=== PATIENT | female | born 1975 | race African-American/Black ===

== ENCOUNTER 2017-11-26 20:17 | Observation (INO) | payer MEDICAID, OTHER ==
[2017-11-26 20:54] LABS: Bilirubin Negative (Negative); Blood, Urine Negative (Negative); Clarity CLEAR (Clear); Glucose, Urine (Dipstick) Negative (Negative); Leukocyte Negative (Negative); Nitrite Negative (Negative); Protein, Urine (Dipstick) Negative (Neg-Trace); Specific Gravity, Urine 1.025 (1.002-1.036); Urobilinogen 0.2 mg/dL (0.2-1.0)
[2017-11-26 20:57] LABS: #Basophils 0.1 thou/uL (0.0-0.2); #Eosinphils 0.2 thou/uL (0.0-0.7); #Lymphocytes 4.3 thou/uL (1.20-3.40); #Monocytes 0.6 thou/uL (0.11-0.59); #Neutrophils 4.6 thou/uL (1.40-6.50); %Basophils 1.3 % (0.0-1.0); %Lymphocytes 43.2 % (21.0-51.0); %Monocytes 6.5 % (0.0-10.0); Hemoglobin 11.4 g/dL (12.0-16.0); Mean Corpuscular HGB CONC 32.6 g/dL (32.0-36.0); Mean Corpuscular Hemoglobin 25.2 pg (27.0-31.0); Mean Corpuscular Volume 77.3 fl (81.0-99.0); Mean Platelet Volume 7.2 fL (7.4-10.4); Platelet Count 300 thou/uL (130-400); RBC Distribution Width 14.9 % (11.5-14.5); Red Blood Cell (RBC) Count 4.51 mill/uL (4.20-5.40); White Blood Cell (WBC) Count 9.8 thou/uL (4.8-10.8)
[2017-11-26 21:17] LABS: ALT (SGPT) 20 U/L (8-55); AST (SGOT) 16 U/L (5-34); Albumin 4.1 g/dL (3.5-5.0); Alkaline Phosphatase 106 U/L (40-150); Anion Gap 12 mmol/L (10-20); BUN (Urea Nitrogen) 19 mg/dL (7.0-18.7); Bilirubin, Total Less than 0.2 mg/dL (0.2-1.2); Calc. Creatinine Clearance 0 mL/min (70-130); Calcium 9.4 mg/dL (7.8-10.44); Carbon Dioxide 26 mmol/L (22-29); Chloride 107 mmol/L (98-107); Estimated GFR-MDRD 84; Globulin 3.3 g/dL (2.4-3.5); Glucose 88 mg/dL (70-105); Lipase 38 U/L (8-78); Potassium 3.8 mmol/L (3.5-5.1); Protein, Total 7.4 g/dL (6.0-8.3); Sodium 141 mmol/L (136-145)
[2017-11-26] MEDS ORDERED: Pantoprazole 40 MG VIAL ONE (21:34)
[2017-11-26 21:52] LABS: CKMB 0.8 ng/mL (0-6.6); Troponin I Less than 0.010 ng/mL (< 0.028)
[2017-11-26] MEDS ORDERED: Lidocaine Viscous Sol 2% 15 ml UD Cup ONE (22:38)
[2017-11-26] MEDS ORDERED: Mag-Al 1200 mg/1200 mg/30 ML UDCUP ONE (22:38)
[2017-11-26] MEDS ORDERED: Ondansetron HCl/PF 4 MG/2 ML Vial ONE (23:35)
[2017-11-27] MEDS ORDERED: Sodium Chloride 0.9% 1,000 ML IV SCH ×2 (02:15→08:17)
[2017-11-27] MEDS ORDERED: Morphine 5 MG/ML SYRINGE SLOW IVP PRN ×2 (02:16→15:52)
[2017-11-27] MEDS ORDERED: Ondansetron HCl/PF 4 MG/2 ML Vial IVP PRN ×2 (02:18→08:17)
[2017-11-27] MEDS ORDERED: Ondansetron ODT 4 MG TAB SL PRN (02:18)
[2017-11-27] MEDS ORDERED: Acetaminophen 325 MG TAB PO PRN (02:18)
[2017-11-27 02:31] VITALS: BMI 35.9
[2017-11-27 05:27] LABS: Troponin I Less than 0.010 ng/mL (< 0.028)
--- NOTE | 2017-11-27 06:58 | CT ---
CT ABDOMEN AND PELVIS NONCONTRAST: Date: 11/26/17 HISTORY: Flank pain. COMPARISON: 04/10/17. FINDINGS: Each renal collecting system, ureter, and the urinary bladder are decompressed without stone apparent . Lack of contrast limits evaluation for other abnormalities. There are postoperative changes of the ri ght colon. No evidence of obstruction. Phleboliths are apparent within the pelvis. There are degenera tive changes of the lumbar spine. Gallbladder is surgically absent. Nonspecific lymph nodes are scatt ered about the retroperitoneum. Scattered diverticula arise from the colon. Minimal free fluid within the pelvis. IMPRESSION: No CT evidence of urinary tract obstruction or calcification. POS: [facility]
[2017-11-27] MEDS ORDERED: Pantoprazole 80 MG, Admixture Fee 1 EACH in Sodium Chloride 0.9% 100 ML IVP SCH (08:17)
[2017-11-27] MEDS ORDERED: Ondansetron ODT 4 MG TAB PO PRN (08:17)
[2017-11-27] MEDS ORDERED: ZOLPIDEM TARTRATE 5 MG PO PRN (08:17)
[2017-11-27] MEDS ORDERED: PROVENTIL INHALER 6.7 G (200 INHALATIONS) INH PRN (08:17)
[2017-11-27] MEDS ORDERED: Polyethylene Glycol 3350 17 GM Packet PO PRN (08:17)
[2017-11-27] MEDS ORDERED: Zolpidem Tartrate 5 MG TAB PO PRN (08:33)
[2017-11-27] MEDS ORDERED: Non-Formulary Item 1 EACH (Budesonide-Formoterol [Symbicort 80-4.5] 2 PUFF) INH SCH (09:00)
[2017-11-27] MEDS ORDERED: Pantoprazole 40 MG VIAL IVP SCH (09:00)
[2017-11-27 09:03] LABS: #Basophils 0.1 thou/uL (0.0-0.2); #Eosinphils 0.1 thou/uL (0.0-0.7); #Lymphocytes 3.7 thou/uL (1.20-3.40); #Monocytes 0.6 thou/uL (0.11-0.59); #Neutrophils 3.8 thou/uL (1.40-6.50); %Basophils 1.3 % (0.0-1.0); %Eosinophils 1.6 % (0.0-10.0); %Lymphocytes 44.7 % (21.0-51.0); %Monocytes 6.7 % (0.0-10.0); %Neutrophils 45.7 % (42.0-75.0); Hemoglobin 9.9 g/dL (12.0-16.0); Mean Corpuscular HGB CONC 31.5 g/dL (32.0-36.0); Mean Corpuscular Hemoglobin 25.1 pg (27.0-31.0); Mean Corpuscular Volume 79.7 fl (81.0-99.0); Mean Platelet Volume 7.4 fL (7.4-10.4); Platelet Count 261 thou/uL (130-400); RBC Distribution Width 14.9 % (11.5-14.5); Red Blood Cell (RBC) Count 3.95 mill/uL (4.20-5.40); White Blood Cell (WBC) Count 8.3 thou/uL (4.8-10.8)
[2017-11-27 09:19] LABS: ALT (SGPT) 27 U/L (8-55); AST (SGOT) 27 U/L (5-34); Albumin 3.5 g/dL (3.5-5.0); Alkaline Phosphatase 93 U/L (40-150); Anion Gap 9 mmol/L (10-20); BUN (Urea Nitrogen) 15 mg/dL (7.0-18.7); Bilirubin, Total 0.3 mg/dL (0.2-1.2); Calc. Creatinine Clearance 137 mL/min (70-130); Calcium 8.5 mg/dL (7.8-10.44); Carbon Dioxide 27 mmol/L (22-29); Chloride 109 mmol/L (98-107); Estimated GFR-MDRD Greater than 90; Globulin 2.8 g/dL (2.4-3.5); Glucose 100 mg/dL (70-105); Magnesium 1.8 mg/dL (1.6-2.6); Potassium 3.7 mmol/L (3.5-5.1); Protein, Total 6.3 g/dL (6.0-8.3); Sodium 141 mmol/L (136-145)
[2017-11-27] MEDS: Sodium Chloride 0.9% 1,000 ML IV SCH ×2 (15:05→21:34)
--- NOTE | 2017-11-27 15:08 | HP ---
DATE OF ADMISSION: 11/27/2017 TIME OF SERVICE: 1100 CHIEF COMPLAINT: Abdominal pain and melena. HISTORY OF PRESENT ILLNESS: Ms. Brewer is a 42-year-old female with history of hiata l hernia, COPD/asthma, constipation, GERD, anxiety/depression and a prior episode of abdominal pain, who presents to the emergency department. She has had an ongoing 2-week history of epigastric pain t hat was worse over the last day or two. She does have a history of a hiatal hernia, some 2 years ago in [place] that they offered surgical repair for which she at that time declined. She has had increased abdominal pain and felt like she was getting bloated, had some nausea and vomit ing when she ate. She did have off and on black stools over the last 2 weeks, and in the emergency d epartment, workup showed a white blood cell count normal, hemoglobin 11.4, which is at her baseline. Chemistries are normal. She was given a 1 liter normal saline and GI cocktail. She was given some Zofran and morphine, and did have one episode of chest pain that came and went spontaneously. Grant shafer subsequently called for admit. She was accepted by the beam builder early this morning and is being admitted now. Since that time, repeat labs have been drawn that showed her hemoglobin dropping from 11.4-9.9. She has had no further melanotic episodes. She had seen Dr. Jarvis in the past for her GERD. PAST MEDICAL HISTORY: 1. Hiatal hernia. 2. Asthma. 3. Constipation. 4. GERD. 5. Anxiety. 6. Depression. PAST SURGICAL HISTORY: 1. Cholecystectomy. 2. Appendectomy. 3. Hysterectomy with bilateral ovary removal. 4. Umbilical hernia repair at age 11. 5. Right wrist tumor removal, she thinks melanoma. HOME MEDICATIONS: 1. Sennosides 5 mg p.o. daily. 2. Docusate as needed. 3. Symbicort 80/4.5 two puffs b.i.d. 4. Albuterol HFA 2 puffs q.4 hours as needed for shortness of breath. 5. Phenergan 25 mg p.o. t.i.d. as needed. 6. Zofran ODT 4 mg p.o. p.r.n. nausea and vomiting. 7. Ambien 5 mg p.o. at bedtime. 8. Protonix 40 mg daily. 9. MiraLax 17 grams daily as listed, she says she was told to take it twice a day, but she does not. ALLERGIES: 1. IODINE, causes anaphylaxis. 2. NITROFURANTOIN, causes hives. 3. TORADOL, causes hives. 4. TRAMADOL, causes hives. 5. HYDROCODONE, causes nausea and vomiting. FAMILY HISTORY: Significant for hyperlipidemia, her dad at age 75 with LA AND had a history of stomach and brain cancers. Family history is also significant for diabetes and hypertension. SOCIAL HISTORY: Significant social alcohol, but otherwise negative for habits x3. REVIEW OF SYSTEMS: A 10-point review of systems was performed, negative for all systems except as pe r HPI. PHYSICAL EXAMINATION: VITAL SIGNS: Temperature 97.6, pulse 52, blood pressure 139/70, respiratory 18, saturation 99% room air. GENERAL: She is awake. She is alert. She is oriented x3, well-developed, well-nourished Am er[place] female, appears to be in zero distress. HEENT: Normocephalic and atraumatic. Pupils equal, round, reactive to light bilaterally. Oral muco sa moist. There is no visible lesion. No thrush. NECK: Supple without lymphadenopathy, JVD, or thyromegaly. She has normal carotid upstrokes. There are no bruits. LUNGS: Clear. CARDIOVASCULAR: Heart sounds are regular. She has no audible murmurs. ABDOMEN: Soft, nontender, nondistended, no mass or organomegaly. She has no rebound, rigidity or gu arding. EXTREMITIES: No cyanosis, no clubbing, no edema. SKIN: Warm, moist, and well perfused. She has no rashes or lesions. NEUROLOGIC: Cranial nerves II-XII grossly intact. She has no focal deficits, 5/5 strength, and norm al speech. MUSCULOSKELETAL: Normal to inspection. Large joints are uninflamed. There is no palpable effusion. LABORATORY DATA: Sodium 141, potassium 3.8, chloride 107, bicarb 26, BUN 19, creatinine 0.88, and ca lcium 9.4. Glucose was 88. Liver functions within normal limits. Total bilirubin is less than 0.2. CBC shows white count 9.8, hemoglobin 11.4, hematocrit 34.9, platelet count is 300,000. Repeat lab s showed her hemoglobin dropped from 11.4-9.9. White blood cell counts remain stable. Repeat chemis tries as her CMP completely within normal limits. Troponin I was negative x3, lipase was 38. Urinalysis negative. CT scan of the abdomen and pelvis showed a hiatal hernia. No acute intra-abdominal pathology noted. ASSESSMENT AND PLAN: 1. Probable upper gastrointestinal bleed. Suspect gastritis or ulcer. Placed on a Protonix drip. Get serial H&Hs, she was already typed and crossed by the emergency department, but does not need a t ransfusion at this point. I have consulted GI, kept the patient on a clear liquid diet and hopefully will be undergo endoscopy later today. 2. Hiatal hernia: None at present. 3. History of asthma on Symbicort and albuterol HFA, we will continue. 4. Chronic constipation. We will continue MiraLax b.i.d. 5. Gastroesophageal reflux disease, on Protonix drips as above. 6. Anxiety/depression. Continue home medications.
--- NOTE | 2017-11-27 15:20 | RAD ---
UPPER GI AIR CONTRAST: HISTORY: Abdominal pain. FINDINGS: Air contrast and single column barium evaluation shows a very small sliding hiatal hernia with a mode rate amount of gastroesophageal reflux. The esophagus, stomach, and duodenum otherwise have a normal appearance. Metallic clips overlie the gallbladder fossa. Fluoro time 1.2 minutes. IMPRESSION: Very small hiatal hernia. A moderate amount of gastroesophageal reflux. POS: [facility]
[2017-11-27 17:01] LABS: Hemoglobin 9.9 g/dL (12.0-16.0)
--- NOTE | 2017-11-27 18:00 | CON ---
DATE OF CONSULTATION: 11/27/2017 REASON FOR CONSULTATION: Epigastric pain, reported dark stool. HISTORY OF PRESENT ILLNESS: Ms. Brewer is a 42-year-old female, well known to me who presented to the emergency room with epigastric pain, worsening over 2 months. She states that it is burning, sharp, tight, often will be worse after she eats. She also notes that she has some vomiting sometimes when she eats. She denied any hematemesis. She reports that sometimes her stools are black. She was on iron, but this was stopped sometime back. She does not recall when. She continues to take Protonix , she states for reflux. She is not sure if she takes 1 or 2. She denies any fever, chills, or dysp hagia. She feels that food sits in her stomach at times. Here in the hospital, she has had no melen a. She was on morphine, but this has been now stopped. She is tolerating a liquid diet, which has b een on since admission. REVIEW OF SYSTEMS: Negative for fever, chills, rashes, myalgias, arthralgias. Occasionally, she alan l have some bright red blood per rectum. PAST MEDICAL HISTORY: Sickle cell trait, reported border hypertension and border diabetes, von Ricardo brand. She reports she was told in [place] one time that she had leukemia, although she is not seein g this physician anymore, only had to go for a few visits. She has had a history of a hiatal hernia sliding type. PAST SURGICAL HISTORY: Appendectomy, cholecystectomy. She has had upper and lower endoscopies for m icrocytic anemia and iron deficiency in 04/2016 and 11/2013. On these studies, she has never had any polyps or overt masses or ulcers. She does have a small hiatal hernia. HOME MEDICATIONS: Dulera inhaler, Atrovent inhaler, Senokot, MiraLax, stool softener, Symbicort, alb uterol, Phenergan, Zofran, Protonix. MEDICATIONS HERE: Albuterol, Dulera, Zofran, Protonix drip, MiraLax p.r.n., normal saline at 125 an hour. FAMILY HISTORY: Negative for colorectal cancer and liver disease. SOCIAL HISTORY: Negative for alcohol, drugs or tobacco. PHYSICAL EXAMINATION: VITAL SIGNS: Temperature is 97, pulse 82, blood pressure 139/71. GENERAL: The patient is resting comfortably in bed. She is dressed. She is eating a liquid diet. She is in no distress. LUNGS: Clear. HEART: Regular rate and rhythm. ABDOMEN: Soft. Mildly tender in the epigastrium with voluntary guarding, but no rebound. Abdomen i s protuberant. No shifting dullness or fluid wave. EXTREMITIES: No clubbing, cyanosis or edema. LABORATORY STUDIES: White count is 8.3; hemoglobin is 9.9, it was 11.4 yesterday, which is at her ba seline; MCV of 79, which is chronic; platelet count is 271,000. Sodium 141, potassium 3.7, BUN and c reatinine are 15 and 0.8, bicarbonate is 27 and chloride was 109. Liver function tests normal. Lipa se normal. TSH normal. Iron was 30 in 06/2017. Urine drug screen negative. Hepatitis A, B, C nega tive. IMAGING STUDIES: CAT scan of the abdomen and pelvis with no contrast showed no kidney stones. I hav e reviewed those films and there is nothing more that can be said about the CAT scan of the abdomen a nd pelvis without any contrast. It is of no use in evaluating abdominal pain other than that which f elt to be possibly related to gallstones. She has also had 4 CAT scans of the abdomen and pelvis sin ce 09/2016, some with contrast, others without, none of these have shown anything abnormal. She had an upper GI and small bowel follow through in 06/2016, which was normal. Separate showed delayed gas tric emptying and small bowel transit. ASSESSMENT: 1. Chronic abdominal pain with multiple evaluations in the past. She does have a history of hiatal hernia, but has had multiple CAT scans, surgeries and endoscopies with no other findings. This is li dmitry functional dyspepsia. There may be a role related to reflux. Possibility of some delayed gastr ic emptying found to be considered as well. Her CAT scan shows no overt constipation or obstipation at this time. 2. Microcytic anemia. She has had documented low iron in the past, she has had multiple endoscopies that have been nondiagnostic in the past and she has had evaluation and had been told she has von Wi llebrand factor and also a thalassemia trait. 3. The patient reports she was told she had leukemia at [facility] in [place] in the past, b ut only saw the doctors there for a few months while she was in town. She did not receive chemothera py. I suspect this is not a true diagnosis. Nothing on rectal exam. There is no melena. RECOMMENDATIONS: 1. Check hemoglobin A1c. 2. Stop Protonix drip, it is not necessary. 3. Check an H&H later today. 4. Hep-Lock IV. 5. Upper gastrointestinal. If this is normal and the patient's hemoglobin is stable, she can go belkis e with Bentyl and PPI b.i.d. 6. She has ongoing problems and the upper GI is normal, a gastric emptying scan would be reasonable. We will follow from a distance.
[2017-11-27] MEDS: Mometasone/Formoterol 120 PUFF INHALER INH SCH (18:15)
[2017-11-27] MEDS: Dicyclomine 10 MG CAP PO PRN (18:33)
[2017-11-27] MEDS: Pantoprazole 40 MG VIAL IVP SCH (20:00)
[2017-11-28] MEDS ORDERED: Acetaminophen 500 MG TAB PO PRN (03:02)
[2017-11-28] MEDS: Dicyclomine 10 MG CAP PO PRN ×2 (03:10→09:03)
[2017-11-28 05:04] LABS: Anion Gap 9 mmol/L (10-20); BUN (Urea Nitrogen) 8 mg/dL (7.0-18.7); Calc. Creatinine Clearance 137 mL/min (70-130); Calcium 8.7 mg/dL (7.8-10.44); Carbon Dioxide 27 mmol/L (22-29); Chloride 109 mmol/L (98-107); Estimated GFR-MDRD Greater than 90; Glucose 99 mg/dL (70-105); Magnesium 1.9 mg/dL (1.6-2.6); Potassium 3.8 mmol/L (3.5-5.1); Sodium 141 mmol/L (136-145)
[2017-11-28] MEDS: Mometasone/Formoterol 120 PUFF INHALER INH SCH (07:24)
[2017-11-28 07:59] VITALS: BP 116/71; TEMP 98.5
[2017-11-28] MEDS: Pantoprazole 40 MG VIAL IVP SCH (09:03)
[2017-11-28 09:54] LABS: #Basophils 0.1 thou/uL (0.0-0.2); #Eosinphils 0.2 thou/uL (0.0-0.7); #Lymphocytes 3.1 thou/uL (1.20-3.40); #Monocytes 0.4 thou/uL (0.11-0.59); #Neutrophils 2.6 thou/uL (1.40-6.50); %Basophils 0.9 % (0.0-1.0); %Eosinophils 2.5 % (0.0-10.0); %Lymphocytes 48.8 % (21.0-51.0); %Monocytes 5.9 % (0.0-10.0); %Neutrophils 41.9 % (42.0-75.0); Hemoglobin 10.5 g/dL (12.0-16.0); Mean Corpuscular HGB CONC 32.1 g/dL (32.0-36.0); Mean Corpuscular Hemoglobin 25.1 pg (27.0-31.0); Mean Corpuscular Volume 78.2 fl (81.0-99.0); Mean Platelet Volume 7.2 fL (7.4-10.4); Platelet Count 245 thou/uL (130-400); RBC Distribution Width 14.9 % (11.5-14.5); Red Blood Cell (RBC) Count 4.19 mill/uL (4.20-5.40); White Blood Cell (WBC) Count 6.3 thou/uL (4.8-10.8)
[2017-11-28 10:14] LABS: Anion Gap 12 mmol/L (10-20); BUN (Urea Nitrogen) 8 mg/dL (7.0-18.7); Calc. Creatinine Clearance 129 mL/min (70-130); Calcium 9.1 mg/dL (7.8-10.44); Carbon Dioxide 25 mmol/L (22-29); Chloride 107 mmol/L (98-107); Estimated GFR-MDRD 88; Glucose 113 mg/dL (70-105); Magnesium 1.9 mg/dL (1.6-2.6); Potassium 3.9 mmol/L (3.5-5.1); Sodium 140 mmol/L (136-145)
--- NOTE | 2017-11-28 15:41 | EKG ---
Test Reason : Blood Pressure : / mmHG Vent. Rate : 063 BPM Atrial Rate : 063 BPM P-R Int : 124 ms QRS Dur : 086 ms QT Int : 412 ms P-R-T Axes : 072 053 039 degrees QTc Int : 421 ms Normal sinus rhythm Minimal voltage criteria for LVH, may be normal variant Borderline ECG Confirmed by OFELIA RZEA, JESSE ([id number]), proposal editor ELVA JOINER ([id number]) on 11/28/2017 3:41:00 PM Referred By: Confirmed By:JESSE GILBERT MD
--- NOTE | 2017-11-28 15:41 | EKG ---
Test Reason : Blood Pressure : / mmHG Vent. Rate : 086 BPM Atrial Rate : 086 BPM P-R Int : 138 ms QRS Dur : 084 ms QT Int : 380 ms P-R-T Axes : 055 053 017 degrees QTc Int : 454 ms Normal sinus rhythm Normal ECG #2 No changes Confirmed by JESSE GILBERT MD ([id number]), content editor ELVA JOINER ([id number]) on 11/28/2017 3:41:26 PM Referred By: Confirmed By:JESSE GILBERT MD
== END 2017-11-28 11:51 | disposition home or self-care (01) ==
LOC: ERS 20:17 → 2SW 11-27 01:51
PROVIDERS: ADMIT Family Medicine; ATTEND Family Medicine
DX: R10.13 Epigastric pain (principal); K21.9 Gastro-esophageal reflux disease without esophagitis; D57.3 Sickle-cell trait; D68.0 Von Willebrand disease; D64.9 Anemia, unspecified; C95.90 Leukemia, unspecified not having achieved remission; K44.9 Diaphragmatic hernia without obstruction or gangrene; R03.0 Elevated blood-pressure reading, without diagnosis of hypertension; R73.03 Prediabetes; Z79.899 Other long term (current) drug therapy; Z98.890 Other specified postprocedural states
CPT/HCPCS: 36415; 74176; 74247; 80048; 80053; 81003; 82274; 82553; 83690; 83735; 84484; 85025; 93005; 96361; 96365; 96366; 96374; 96375; 96376; J2270; A4216; C9113; G0378; J2405; J7050

== ENCOUNTER 2017-11-29 16:06 | Emergency (ER) | payer OTHER ==
[2017-11-29] MEDS ORDERED: Lidocaine Viscous Sol 2% 15 ml UD Cup ONE (16:43)
[2017-11-29] MEDS ORDERED: Mag-Al 1200 mg/1200 mg/30 ML UDCUP ONE (16:43)
--- NOTE | 2017-12-05 19:03 | EKG ---
Test Reason : Blood Pressure : / mmHG Vent. Rate : 063 BPM Atrial Rate : 063 BPM P-R Int : 142 ms QRS Dur : 086 ms QT Int : 410 ms P-R-T Axes : 054 054 051 degrees QTc Int : 419 ms Normal sinus rhythm Normal ECG Confirmed by ERICKA REZA, KARTHIKEYAN ([id number]), design editor LESLEY ALONZO ([id number]) on 12/05/2017 7:02:17 PM Referred By: Confirmed By:KARTHIKEYAN BARNETT MD
== END 2017-11-29 18:23 | disposition home or self-care (01) ==
LOC: ERS 16:06
DX: K29.70 Gastritis, unspecified, without bleeding (principal); D57.00 Hb-SS disease with crisis, unspecified; D50.0 Iron deficiency anemia secondary to blood loss (chronic); D68.0 Von Willebrand disease; I10 Essential (primary) hypertension; G47.00 Insomnia, unspecified; Z87.01 Personal history of pneumonia (recurrent); Z79.899 Other long term (current) drug therapy
CPT/HCPCS: 93005

== ENCOUNTER 2017-12-07 12:34 | Emergency (ER) | payer OTHER ==
[2017-12-07 13:08] LABS: Hemoglobin 12.5 g/dL (12.0-16.0); Mean Corpuscular HGB CONC 32.6 g/dL (32.0-36.0); Mean Corpuscular Hemoglobin 25.3 pg (27.0-31.0); Mean Corpuscular Volume 77.6 fl (81.0-99.0); Mean Platelet Volume 7.4 fL (7.4-10.4); Platelet Count 331 thou/uL (130-400); RBC Distribution Width 14.9 % (11.5-14.5); Red Blood Cell (RBC) Count 4.95 mill/uL (4.20-5.40); White Blood Cell (WBC) Count 5.9 thou/uL (4.8-10.8)
[2017-12-07 13:20] LABS: ALT (SGPT) 19 U/L (8-55); AST (SGOT) 20 U/L (5-34); Albumin 4.4 g/dL (3.5-5.0); Alkaline Phosphatase 107 U/L (40-150); Anion Gap 13 mmol/L (10-20); BUN (Urea Nitrogen) 16 mg/dL (7.0-18.7); Bilirubin, Total 0.2 mg/dL (0.2-1.2); Calc. Creatinine Clearance 0 mL/min (70-130); Calcium 10.2 mg/dL (7.8-10.44); Carbon Dioxide 26 mmol/L (22-29); Chloride 103 mmol/L (98-107); Estimated GFR-MDRD 86; Globulin 3.8 g/dL (2.4-3.5); Glucose 102 mg/dL (70-105); Potassium 4.1 mmol/L (3.5-5.1); Protein, Total 8.2 g/dL (6.0-8.3); Sodium 138 mmol/L (136-145)
[2017-12-07 13:41] LABS: Eosinophils 1 % (0-10); Hypochromia SLIGHT = 6-15 cells (100X) (0-5/hpf); Lymphocytes 52 % (21-51); MDiff Complete? YES; Microcytosis SLIGHT = 6-15 cells (100X) (0-5/hpf); Monocytes 3 % (0-10); Neutrophil 36 % (42-75); Ovalocytes SLIGHT = 2-5 cells (100X) (0-1/hpf); PLT Morphology Comment Appears Adequate; Polychromasia SLIGHT = 2-3 cells (100X) (0-2/hpf); Reactive Lymphocytes 8 % (0-10); Target Cells SLIGHT = 2-5 cells (100X) (0-1/hpf)
[2017-12-07] MEDS ORDERED: Lidocaine Viscous Sol 2% 15 ml UD Cup ONE (15:48)
[2017-12-07] MEDS ORDERED: Mag-Al 1200 mg/1200 mg/30 ML UDCUP ONE (15:48)
[2017-12-07] MEDS ORDERED: Ondansetron HCl/PF 4 MG/2 ML Vial ONE (15:53)
--- NOTE | 2018-01-03 01:19 | EKG ---
Test Reason : CHEST PAIN Blood Pressure : / mmHG Vent. Rate : 064 BPM Atrial Rate : 064 BPM P-R Int : 140 ms QRS Dur : 088 ms QT Int : 400 ms P-R-T Axes : 055 052 046 degrees QTc Int : 412 ms Normal sinus rhythm Minimal voltage criteria for LVH, may be normal variant Borderline ECG Confirmed by ERICKA REZA, KARTHIKEYAN ([id number]), mapping editor LESLEY ALONZO ([id number]) on 01/03/2018 1:18:45 AM Referred By: Confirmed By:KARTHIKEYAN BARNETT MD
== END 2017-12-07 17:00 | disposition home or self-care (01) ==
LOC: ERS 12:34
DX: K20.9 Esophagitis, unspecified (principal); K29.70 Gastritis, unspecified, without bleeding; D57.3 Sickle-cell trait; I10 Essential (primary) hypertension; G47.00 Insomnia, unspecified; Z79.899 Other long term (current) drug therapy
CPT/HCPCS: 36415; 80053; 85025; 93005; 96374; J2405

== ENCOUNTER 2017-12-10 07:49 | Outpatient (CLI) | payer OTHER ==
--- NOTE | 2017-12-10 12:00 | NM ---
RADIONUCLIDE GASTRIC EMPTYING SCAN: HISTORY: Epigastric pain. RADIOPHARMACEUTICAL: 2 mCi technetium-99m sulfur colloid administered orally in scrambled eggs. FINDINGS: There is 45% emptying of the ingested gastric contents at 1 hour, 90% emptying at 2 hours, and 100% e mptying at 3 hours. The calculated gastric emptying halftime measures 69 minutes. IMPRESSION: Normal exam. POS: [facility]
== END 2017-12-10 07:50 | disposition home or self-care (01) ==
LOC: NM 07:49
PROVIDERS: ATTEND Internal Medicine Gastroenterology
DX: K59.00 Constipation, unspecified (principal); R10.13 Epigastric pain
CPT/HCPCS: 78264; A9541

== ENCOUNTER 2017-12-15 18:20 | Inpatient (IN) | payer OTHER ==
--- NOTE | 2017-12-15 19:12 | RAD ---
RADIOGRAPH CHEST 1 VIEW: 12/15/17 HISTORY: 42-year-old female with chest pain. FINDINGS: There are no air space densities, pulmonary edema, pneumothorax, or cardiomegaly. The lateral costop hrenic angles are sharp. IMPRESSION: No acute cardiopulmonary findings. elsy [] POS: [facility]
[2017-12-15] MEDS ORDERED: Morphine 4 MG/ML VIAL ONE (19:51)
[2017-12-15 20:19] LABS: #Basophils 0.1 thou/uL (0.0-0.2); #Eosinphils 0.1 thou/uL (0.0-0.7); #Lymphocytes 4.8 thou/uL (1.20-3.40); #Monocytes 0.7 thou/uL (0.11-0.59); #Neutrophils 5.9 thou/uL (1.40-6.50); %Basophils 0.9 % (0.0-1.0); %Eosinophils 1.3 % (0.0-10.0); %Lymphocytes 41.1 % (21.0-51.0); %Monocytes 6.4 % (0.0-10.0); %Neutrophils 50.4 % (42.0-75.0); Hemoglobin 12.4 g/dL (12.0-16.0); Mean Corpuscular HGB CONC 32.4 g/dL (32.0-36.0); Mean Corpuscular Hemoglobin 25.1 pg (27.0-31.0); Mean Corpuscular Volume 77.5 fl (81.0-99.0); Mean Platelet Volume 7.1 fL (7.4-10.4); Platelet Count 354 thou/uL (130-400); RBC Distribution Width 15.2 % (11.5-14.5); Red Blood Cell (RBC) Count 4.94 mill/uL (4.20-5.40); White Blood Cell (WBC) Count 11.7 thou/uL (4.8-10.8)
[2017-12-15 20:43] LABS: CKMB 2.9 ng/mL (0-6.6); Troponin I Less than 0.010 ng/mL (< 0.028)
[2017-12-15 20:50] LABS: ALT (SGPT) 38 U/L (8-55); AST (SGOT) 39 U/L (5-34); Albumin 4.2 g/dL (3.5-5.0); Alkaline Phosphatase 113 U/L (40-150); Anion Gap 13 mmol/L (10-20); BUN (Urea Nitrogen) 21 mg/dL (7.0-18.7); Bilirubin, Total 0.2 mg/dL (0.2-1.2); Calc. Creatinine Clearance 0 mL/min (70-130); Calcium 9.6 mg/dL (7.8-10.44); Carbon Dioxide 26 mmol/L (22-29); Chloride 103 mmol/L (98-107); Estimated GFR-MDRD 64; Globulin 4.2 g/dL (2.4-3.5); Glucose 95 mg/dL (70-105); Lipase 43 U/L (8-78); Protein, Total 8.4 g/dL (6.0-8.3); Sodium 137 mmol/L (136-145)
[2017-12-15] MEDS ORDERED: Nitroglycerin 0.4 MG TAB (25 Tab Bottle) ONE (20:51)
[2017-12-15] MEDS ORDERED: Lidocaine Viscous Sol 2% 15 ml UD Cup ONE (21:14)
[2017-12-15] MEDS ORDERED: Mag-Al 1200 mg/1200 mg/30 ML UDCUP ONE (21:14)
[2017-12-15] MEDS ORDERED: traZODone HCl 50 MG TAB ONE (22:48)
[2017-12-15] MEDS ORDERED: Pantoprazole 40 MG VIAL ONE (23:55)
[2017-12-16] MEDS ORDERED: HYDROmorphone 0.5 MG/0.5 ML SYRINGE ONE (03:15)
[2017-12-16] MEDS ORDERED: Ondansetron HCl/PF 4 MG/2 ML Vial ONE (03:17)
[2017-12-16 03:24] LABS: INR-International Normal Ratio 1.1; PTT 29.4 SEC (22.9-36.1); Prothrombin Time 14.4 SEC (12.0-14.7)
[2017-12-16] MEDS ORDERED: Piperacillin/Tazobactam 3.375 GM in Sodium Chloride 0.9% 100 ML IVPB SCH (03:30)
[2017-12-16] MEDS ORDERED: Ondansetron HCl/PF 4 MG/2 ML Vial IVP PRN ×2 (07:44→17:19)
[2017-12-16] MEDS ORDERED: Ondansetron ODT 4 MG TAB PO PRN (07:45)
[2017-12-16] MEDS ORDERED: Acetaminophen 325 MG TAB PO PRN (07:45)
--- NOTE | 2017-12-16 08:22 | CT ---
PRELIMINARY REPORT/[facility]/EMERGENCY AFTER HOURS PROCEDURE: Addendum created by Lio Ramon MD on 12/16/2017 2:10 AM Central Time ([place] & [place]) THIS REPORT CONTAINS FINDINGS THAT MAY BE CRITICAL TO PATIENT CARE. The findings were verbally commun icated via telephone conference with Dr. ENGEL at 2:10 AM CDT on 12/16/2017. The findings were ackn owledged and understood. Initial Report created on 12/16/2017 2:00 AM Central Time ([place] & [place]) EXAM: CT Chest Without Intravenous Contrast EXAM DATE/TIME: 12/16/2017 12:50 AM CLINICAL HISTORY: The patient is 42 years old and is female; Pain; Abdominal pain; Chest pain; Prior surgery; Surgery d ate: Post-operative (0-2 days); Surgery type: Esophageal dilation; Patient HX: 42 yo aaf w/[facility] esopha geal stricture. Had esophageal dilation today and began experiencing n/v and substernal pain immediat chilango after the procedure. Has vomited 4 times since procedure. Called industrial/organizational psychologist gi who recommended she c ome to hospital for evaluation. Denies fever or chills. Also reports diarrhea. TECHNIQUE: Axial computed tomography images of the chest without intravenous contrast. COMPARISON: No relevant prior studies available. FINDINGS: Artifacts: Mild motion artifact. Lungs: Slight ground glass opacification within the dependent lung parenchyma, probable mild atelecta sis, trace infection not excluded. Pleural space: No pneumothorax. No significant effusion. Heart: No cardiomegaly. No significant pericardial effusion. Esophagus: Apparent mural thickening involving an approximately 5.5 cm segment of the proximal esopha crystal, appearance possibly at least in part due to incomplete distention, presence of a mural mass or i ntramural hematoma not excluded. Punctate gas within the right lateral wall of the midesophagus on (s eries 401, image 70), question small diverticulum, possibility of a small mural tear not excluded. Mediastinum: Punctate hypodensity posterior to the trachea on (series 2, image 33) demonstrates a den sity of approximately -55 Hounsfield units and -91 Hounsfield units on (series 401, image 65) consist ent with fat density, volume averaging of a tiny focus of gas not entirely excluded, no yuval pneumom ediastinum. Bones/joints: No acute fracture. No dislocation. Soft tissues: No significant focal abnormality. Vasculature: No thoracic aortic aneurysm. Lymph nodes: No significant adenopathy. Gallbladder and bile ducts: Surgical absence of gallbladder, no significant biliary distention. Stomach and bowel: Mild diverticulosis. IMPRESSION: 1. Mild motion artifact. 2. Apparent mural thickening involving an approximately 5.5 cm segment of the proximal esophagus, pauly earance possibly at least in part due to incomplete distention, presence of a mural mass or intramura l hematoma not excluded. 3. Punctate gas within the right lateral wall of the midesophagus on (series 401, image 70), question small diverticulum, possibility of a small mural tear not excluded. 4. Punctate hypodensity posterior to the trachea on (series 2, image 33) demonstrates a density of ap proximately -55 Hounsfield units and -91 Hounsfield units on (series 401, image 65) consistent with f at density, volume averaging of a tiny focus of gas not entirely excluded, no yuval pneumomediastinum . Sequential followup may be helpful to assess stability. Thank you for allowing us to participate in the care of your patient. Dictated and Authenticated by: Lio Ramon MD 12/16/2017 2:00 AM Central Time ([place] & [place]) FINAL REPORT EMERGENT AFTER HOURS NONCONTRAST CT NECK EMERGENT AFTER HOURS NONCONTRAST CT THORAX: Date: 12-16-17 History: Patient is post esophageal dilatation today secondary to an esophageal stricture. Patient be petros experiencing nausea, vomiting, and substernal chest pain immediately after the procedure. IMPRESSION: 1. Suggested thickening of the proximal thoracic esophagus. This may in part be related to incomplete distention. This is more asymmetric compared to the more distal esophagus. As stated on preliminary report, intramural hematoma or mural mass cannot be entirely excluded. 2. [facility] mentions punctate post gas right lateral wall midesophagus (Series 41, Image 70) and question ed the possibility of a small diverticulum or small mural tear. While this is a possibility, this may be related to the appositive of the esophagus in this region given this appearance. 3. No yuval pneumomediastinum is seen and there is no pneumothorax. If patient's symptoms persist, fo llow up imaging is advised. 4. Ground glass densities at each lung base probably related to atelectasis. 5. Findings are in agreement with the preliminary report by Micaela. POS: [facility]
[2017-12-16 08:40] VITALS: BMI 35.4
[2017-12-16] MEDS ORDERED: Dextrose 5 % And 0.9 % NaCl 1,000 ML IV SCH (11:00)
[2017-12-16] MEDS ORDERED: Morphine 5 MG/ML SYRINGE SLOW IVP PRN (11:17)
[2017-12-16] MEDS: Piperacillin/Tazobactam 3.375 GM in Sodium Chloride 0.9% 100 ML IVPB SCH ×2 (12:28→17:29)
--- NOTE | 2017-12-16 12:38 | CON ---
DATE OF CONSULTATION: 12/16/2017 REASON FOR CONSULTATION: The patient with esophageal perforation on CT scan. HISTORY OF PRESENT ILLNESS: Ms. Brewer is a 42-year-old woman who underwent an esophageal dilatation by Dr. Jarvis on 12/15/2017. She had nausea post-procedure. She threw up at home a couple of times and had nausea and pain in her neck. She was brought back to the emergency department. CT scan at t hat time shows no mediastinal air. She had an esophageal mural inflammation versus hematoma. She plata s not been tachycardic. She has had no further nausea since admission. Her white count at admission was 11.4. She has had no fever since being in the hospital. Since being in the hospital, she was s tarted on Zosyn. Currently, she is sleeping. Her heart rate is 80. She has minimal pain in her nec k. She has had no crepitance or further nausea. PAST MEDICAL HISTORY: 1. History of hepatitis C. 2. Diabetes mellitus. 3. Sickle cell trait. 4. Pneumonia. 5. Costochondritis. 6. Iron deficiency anemia. 7. Hypertension. 8. Von Willebrand disease. 9. Leukemia, last chemotherapy was in 06/2017. PAST SURGICAL HISTORY: 1. Appendectomy. 2. Cholecystectomy. 3. Hysterectomy. 4. Umbilical hernia repair. 5. Right wrist surgery. 6. Upper GI with dilatation on 12/15/2017. PSYCHIATRIC HISTORY: None. ALLERGIES: 1. CODEINE. 2. CONTRAST. 3. KETOROLAC. 4. MACROBID. 5. ULTRAM. CURRENT MEDICATIONS: Unknown. PHYSICAL EXAMINATION: VITAL SIGNS: In the emergency department, heart rate was 90, blood pressure is 136/91. HEENT: Sclerae nonicteric. Pupils equal, round bilaterally. NECK: There is no crepitance. She has some tenderness over the left side of her neck extending down to the thoracic inlet. CHEST: Clear bilaterally. HEART: Rhythm is regular without murmur. ABDOMEN: Soft and nontender. IMAGING: X-ray, I have reviewed her CT scan myself. LABORATORY: Has been reviewed. ASSESSMENT AND PLAN: This is a 42-year-old woman status post esophageal instrumentation on 8, who represented with pain, nausea, vomiting, and a CT scan consistent with a partial thickness tea r of the esophagus. I have recommended that she remain n.p.o. for 48 hours. She has been started on antibiotics. I would restudy her in [address] scan or barium swallow.
[2017-12-16] MEDS ORDERED: Acetaminophen 650 MG Suppository PR PRN (13:26)
[2017-12-16] MEDS: Fentanyl 100 MCG/2 ML VIAL SLOW IVP PRN ×3 (15:44→20:52)
[2017-12-16] MEDS ORDERED: PROVENTIL INHALER 6.7 G (200 INHALATIONS) INH PRN (17:18)
[2017-12-16] MEDS ORDERED: hydrALAZINE 20 MG/ML VIAL SLOW IVP PRN (17:21)
--- NOTE | 2017-12-16 17:43 | HP ---
PRIMARY CARE PHYSICIAN: Ross Rizo M.D. CHIEF COMPLAINT: Nausea and vomiting. HISTORY OF PRESENT ILLNESS: Ms. Brewer is a pleasant 42-year-old lady who was seen at [facility] on 12/16/2016. She underwent esophageal dilatation yesterday as an outpatient. Following the procedure, she went ho nm. At home, she developed nausea and vomiting. She reports vomiting multiple times. She denies an y fevers or chills. She also reports inability to take any oral diet. She reports soreness in her t hroat, which is extending into her upper chest as well as to her back. She denies any fevers or chil ls. She denies any abdominal pain. REVIEW OF SYSTEMS: The following complete review of systems was negative, unless otherwise mentioned in the HPI or below: Constitutional: Weight loss or gain, ability to conduct usual activities. Sk in: Rash, itching. Eyes: Double vision, pain. ENT/Mouth: Nose bleeding, neck stiffness, pain, te nderness. Cardiovascular: Palpitations, dyspnea on exertion, orthopnea. Respiratory: Shortness of breath, wheezing, cough, hemoptysis, fever or night sweats. Gastrointestinal: Poor appetite, abdom inal pain, heartburn, nausea, vomiting, constipation, or diarrhea. Genitourinary: Urgency, frequenc y, dysuria, nocturia. Musculoskeletal: Pain, swelling. Neurologic/Psychiatric: Anxiety, depressio n. Allergy/Immunologic: Skin rash, bleeding tendency. PAST MEDICAL HISTORY: Significant for hepatitis C, diabetes mellitus, sickle cell trait, pneumonia, costochondritis, iron deficiency anemia, hypertension, and von Willebrand disease and leukemia. PAST SURGICAL HISTORY: Significant for appendectomy, cholecystectomy, hysterectomy, umbilical hernia repair, right wrist surgery and esophageal dilatation on 12/15/2017. SOCIAL HISTORY: Significant for alcohol use, denies tobacco use and recreational drug use. FAMILY HISTORY: Myocardial infarction in her father. ALLERGIES: IODINE, NITROFURANTOIN, TORADOL, TRAMADOL and HYDROCODONE. HOME MEDICATIONS: Sennosides 5 mg daily, docusate as needed, Symbicort 80/4.5 two puffs 2 times a da y, Ventolin p.r.n., Phenergan 25 mg 3 times a day as needed, Zofran 4 mg as needed, Ambien 5 mg at be dtime, Protonix 40 mg daily, and MiraLax 17 grams daily. PHYSICAL EXAMINATION: GENERAL: Ms. Brewer is awake and alert, not in acute distress. VITAL SIGNS: Blood pressure is 100/64, pulse is 70. She is breathing at rate of 18, and saturating 100% on room air. She is afebrile. EYES: No scleral icterus. No conjunctival pallor. ENT: Moist mucosal membranes, no oropharyngeal erythema or exudate. NECK: No palpable crepitus, normal range of movement, nontender, trachea is midline. RESPIRATORY: Accessory muscles of breathing are not active. Chest wall movements are symmetric bila terally. LUNGS: Clear to auscultation without wheeze, rhonchi or crepitations. CARDIOVASCULAR: S1 and S2 are heard, regular. LUNGS: Peripheral pulses palpable. No carotid bruit, no pericardial rub. ABDOMEN: Soft, nontender, bowel sounds heard, no hepatomegaly, no splenomegaly. NEUROLOGIC: Cranial nerves II-XII intact. Deep tendon reflexes are 2+. MUSCULOSKELETAL: Power is 5/5 in all 4 extremities. Normal range of movement at all major extremity joints. SKIN: No rashes or subcutaneous nodules. LYMPHATIC: No cervical lymphadenopathy. PSYCHIATRIC: Normal mood, normal affect, patient is oriented to person, place, and time. LABORATORY DATA: Ms. Brewer' labs and investigations were reviewed. I reviewed her electrocardiogram , which shows normal sinus rhythm, no ST changes to suggest an acute coronary syndrome. I also revie wed her chest x-ray, which does not show any pulmonary infiltrates. She had a CT scan of the chest, which showed an apparent mural thickening involving an approximately 5.5 cm segment of the proximal e sophagus, appearance, possibly at least in part due to incomplete distention, presence of a mural mas s or intramural hematoma not excluded. She had punctate gas within the right lateral wall of the mid esophagus, radiologist questions small diverticulum, but possibility of a small mural tear is not ex cluded. She also had a punctate hypodensity posterior to the trachea consistent with fat density. T iny focus of gas was not entirely excluded. There was no yuval pneumomediastinum. Laboratory invest igations show leukocytosis with 11,700 white cells, of which 50.4% are neutrophils, normal hemoglobin , normal platelet count, INR 1.1, normal electrolytes, elevated blood urea nitrogen of 21, elevated c reatinine of 1.12, elevated AST of 39, normal total bilirubin, normal ALT and normal alkaline phospha tase. Lipase is normal. Troponin I is normal. Lactic acid is normal. ASSESSMENT AND PLAN: Ms. Brewer is a pleasant 42-year-old lady who was seen at [facility] on 12/16/2017. Her problem list includes: 1. Difficulty swallowing: This is following esophageal dilatation as an outpatient. She will be ad mitted to the hospital for further management. Gastroenterology Service will be consulted. 2. Acute renal insufficiency: The patient had a normal creatinine on 12/07/2017. It is slightly el evated at 1.12 today, most likely secondary to vomiting and dehydration. We will provide intravenous hydration and recheck. 3. Hypertension: Hold oral antihypertensives, p.r.n. IV hydralazine. 4. Asthma: Continue home bronchodilators, stable. Cardiovascular Surgery has been consulted by Gas troenterology Service because of abnormal findings on CT scan. The patient will be kept n.p.o. Many thanks for allowing me to participate in Ms. Brewer care. Please feel free to contact me with an y questions or concerns. LEVEL OF RISK: High. LEVEL OF COMPLEXITY: High.
[2017-12-16] MEDS: Dextrose 5 % And 0.9 % NaCl 1,000 ML IV SCH (18:28)
[2017-12-16] MEDS: Mometasone/Formoterol 120 PUFF INHALER INH SCH (19:15)
[2017-12-16] MEDS: Pantoprazole 40 MG VIAL IVP SCH (20:46)
[2017-12-17] MEDS: Fentanyl 100 MCG/2 ML VIAL SLOW IVP PRN ×5 (00:02→23:28)
[2017-12-17] MEDS: Piperacillin/Tazobactam 3.375 GM in Sodium Chloride 0.9% 100 ML IVPB SCH ×5 (00:04→23:26)
[2017-12-17] MEDS: Dextrose 5 % And 0.9 % NaCl 1,000 ML IV SCH ×2 (00:15→17:08)
[2017-12-17 04:01] LABS: Anion Gap 11 mmol/L (10-20); BUN (Urea Nitrogen) 15 mg/dL (7.0-18.7); Calc. Creatinine Clearance 96 mL/min (70-130); Calcium 8.8 mg/dL (7.8-10.44); Carbon Dioxide 25 mmol/L (22-29); Chloride 109 mmol/L (98-107); Estimated GFR-MDRD 63; Glucose 115 mg/dL (70-105); Sodium 141 mmol/L (136-145)
[2017-12-17 05:14] LABS: Eosinophils 2 % (0-10); Lymphocytes 63 % (21-51); MDiff Complete? YES; Mean Corpuscular HGB CONC 32.2 g/dL (32.0-36.0); Mean Corpuscular Volume 77.9 fl (81.0-99.0); Mean Platelet Volume 7.1 fL (7.4-10.4); Microcytosis SLIGHT = 6-15 cells (100X) (0-5/hpf); Monocytes 3 % (0-10); Neutrophil 32 % (42-75); PLT Morphology Comment Appears Adequate; Platelet Count 284 thou/uL (130-400)
[2017-12-17] MEDS: Mometasone/Formoterol 120 PUFF INHALER INH SCH ×2 (07:06→19:33)
[2017-12-17] MEDS ORDERED: Acetaminophen 650 MG in Premix Bag 1 BAG IVPB PRN (08:39)
[2017-12-17] MEDS: Pantoprazole 40 MG VIAL IVP SCH ×2 (09:39→19:56)
--- NOTE | 2017-12-17 11:16 | CON ---
DATE OF CONSULTATION: 12/16/2017 GASTROINTESTINAL CONSULT HISTORY OF PRESENT ILLNESS: Ms. Brewer is admitted last night after undergoing EGD yesterday when she presented with neck pain and some edematous changes in the proximal esophagus and possible tear of t he esophagus with intramucosal air. Ms. Brewer had recently been in the hospital on 11/27/2017 through 11/29/2017. At that time, she came in with complaints of epigastric pain for 2 months, burning, sharp, and tight, worsening after eatin g. Previous evaluations with endoscopies, gastric-emptying scans, HIDA scans and a CAT scan at [facility] with no signs of overt constipation or obstipation, did have a microcytic anemia, has been possi alejandro related to thalassemia trait. At that time, she had improvement with symptomatic care. She had an upper GI x-ray that was normal. She followed up with me in the office then and she had a gastric emptying scan that was normal, but at that visit, she was complaining of yuval dysphagia for solids, thin foods were hanging up in the mid chest region and she have to regurgitate them. With this new s ymptom and her describing episodes of bolus obstruction despite normal upper GI procedure was n ot performed with the barium tablet. We will schedule for an EGD which was performed yesterday. At that time, the EGD was normal with no evidence of eosinophilic esophagitis or strictures or narrowing in the esophagus. There are no inflammatory changes. Empiric dilatation was performed with 54-Fren ch Walker dilator and second look showed no effect. We then performed a dilatation just the proxima l esophagus where she complained of most of her symptoms with a 60-Bulgarian dilator and there was small mucosal laceration, but no yuval bleeding or deep mucosal tear at that time on second look. After t hat procedure, she had quite a bit of retching and in the recovery room ultimately that was controlle d with Zofran. She had a little bit of chest pain. She had an EKG, which was normal, and she did no t require any narcotic pain medicine. Ultimately, she felt fine and went home. She re-presented to the emergency room after calling the on-call doctor for ongoing pain in the upper chest region there. She was seen in the emergency room and had stable vital signs. ER doctor noted no crepitus, so was going to discharge her, was requested that a CAT scan be performed of the neck and chest area in lig ht of her complaints and recent dilatation. On that study, the radiologist felt she either had some edema in the proximal esophagus and possibly some intraluminal air and the decision was made to admit her, make her n.p.o. and observe her. Since admission, she has not been tachycardic. She states he r pain is controlled with morphine, but it makes her nauseated. She preferred Dilaudid as this worke d for her well in the past and did not cause nausea. When asked about fentanyl take that. Haroldo shafer has had no fevers since admission. She is handling her secretions fine. She has been started on Z osyn. She has been afebrile. She has no further nausea now. She is able to move her neck well. Th ere is no crepitus. No nausea. Pain is better controlled. PAST MEDICAL HISTORY: Hepatitis C, diabetes, sickle cell trait, pneumonia, costochondritis, iron def iciency anemia in the past, hypertension, Von Willebrand disease, leukemia, chemotherapy in 2017. PAST SURGICAL HISTORY: Appendectomy, cholecystectomy, hysterectomy, umbilical hernia repair, wrist s urgery, upper gastrointestinal dilatation on 12/15/2017. Previous EGDs and colonoscopies in the past are normal. ALLERGIES: CODEINE, CONTRAST, TORADOL, MACROBID, ULTRAM. CURRENT HOME MEDICATIONS: Ambien, Senokot, MiraLax, Protonix, Zofran, stool softeners, Bentyl, Symbi darien, and ProAir. PRESENT MEDICATIONS: Tylenol, normal saline at 125 an hour, Zofran, Zosyn, morphine 2 mg q.6 h. p.r. n. for pain. PHYSICAL EXAMINATION: GENERAL: The patient is resting comfortably in bed. She has two family members at the bedside. She is in no distress. VITAL SIGNS: Temperature is 98.4, T-max today is 98.5, pulse 65, respirations 17, blood pressure 164 . NECK: There is no crepitus in the chest, neck, back, or upper abdomen. LUNGS: Clear. HEART: Regular rate and rhythm. ABDOMEN: Nontender. LABORATORY STUDIES: White count 11.7, platelet count 354, hemoglobin 12.4. Sodium 137, potassium 5, BUN and creatinine are 21 and 1.12. Liver function test normal. Lipase was normal. Urine was nega tive. Previous stool H. pylorus in 2016 was negative. Urine drug screen was negative. Alcohol nega tive. Hepatitis panel negative at this time include hepatitis C. CT scan films reviewed. I have di scussed the case with the radiologist and with CV Surgery. ASSESSMENT: Post-dilatation of esophagus. From yesterday, the patient has had nausea, vomiting, and pain. She had a CAT scan showing incomplete distention versus hematoma versus inflammation of the p roximal esophagus. There may be a partial thickness tear associated with this. There are no signs o f esophageal leak. There are no signs of mediastinitis or sepsis. PLAN: At this time, we will keep her on n.p.o. strict for 48 hours. Continue antibiotics. Continue IV fluids, control pain and nausea, and consider repeat imaging with barium swallow or CT on Thursday in 48 hours.
--- NOTE | 2017-12-17 16:21 | PDOC.PN ---
- Subjective Encounter Start Date: 12/17/17 Encounter Start Time: 09:00 Pt seen for followup re: difficulty swallowing. No fevers or chills. Chest discomfort still present. - Objective MAR Reviewed: Yes Vital Signs & Weight: Vital Signs (12 hours) Temp Pulse Resp BP Pulse Ox 12/17/17 11:58 56 L 18 116/83 100 12/17/17 08:31 93/57 L 12/17/17 08:21 98.1 F 57 L 16 88/61 L 100 12/17/17 08:00 98.1 F 57 L 16 100 Weight Admit Weight 213 lb Weight 213 lb I&O: 12/16/17 12/17/17 12/18/17 06:59 06:59 06:59 Intake Total 725 Output Total 200 Balance 525 Result Diagrams: 12/17/17 03:23 12/17/17 03:23 Phys Exam - Physical Examination Obese HEENT: PERRLA, moist MMs, sclera anicteric Neck: no nodes, no JVD, supple, full ROM Respiratory: no wheezing, no rales, no rhonchi, clear to auscultation bilateral Cardiovascular: RRR, no rub Gastrointestinal: soft, non-tender, no distention, positive bowel sounds Neurological: moves all 4 limbs Psychiatric: normal affect, A&O x 3 Dx/Plan (1) Difficulty swallowing Code(s): R13.10 - DYSPHAGIA, UNSPECIFIED Status: Acute Comment: Pt currently NPO, receiving IV fluids. On IV Zosyn for dysphagia following esophageal dilatation. CV surgery and GI following. (2) Diabetes Code(s): E11.9 - TYPE 2 DIABETES MELLITUS WITHOUT COMPLICATIONS Status: Chronic Comment: Accuchecks, insulin sliding scale (3) Gastroesophageal reflux disease Code(s): K21.9 - GASTRO-ESOPHAGEAL REFLUX DISEASE WITHOUT ESOPHAGITIS Status: Chronic Comment: IV PPI (4) HTN (hypertension) Code(s): I10 - ESSENTIAL (PRIMARY) HYPERTENSION Status: Chronic Comment: Monitor vital signs, titrate antihypertensives as needed. (5) Obesity (BMI 35.0-39.9 without comorbidity) Code(s): E66.9 - OBESITY, UNSPECIFIED Status: Chronic (6) Anxiety and depression Code(s): F41.9 - ANXIETY DISORDER, UNSPECIFIED; F32.9 - MAJOR DEPRESSIVE DISORDER, SINGLE EPISODE, UNSPECIFIED Status: Chronic - Plan continue antibiotics, out of bed/ambulate, DVT proph w/SCDs * . Review of Systems - Review of Systems Constitutional: negative: fever, chills, sweats, weakness, malaise, other ENT: Other (difficutly swallowing) Cardiovascular: negative: chest pain, palpitations, orthopnea, paroxysmal nocturnal dyspnea, edema, light headedness Gastrointestinal: Other. negative: Nausea, Vomiting, Abdominal Pain, Diarrhea, Constipation, Melena, Hematochezia Genitourinary: negative: Dysuria, Frequency, Incontinence, Hematuria, Retention Skin: negative: Rash, Lesions, Calvin, Bruising - Medications/Allergies Allergies/Adverse Reactions: Allergies Allergy/AdvReac Type Severity Reaction Status Date / Time Iodinated Contrast- Oral and Allergy Severe Short of Verified 03/12/17 11:04 IV Dye Breath [Iodinated Contrast Media - IV Dye] ketorolac tromethamine Allergy Hives Verified 03/12/17 11:04 [From Toradol] nitrofurantoin Allergy Hives Verified 03/12/17 11:04 [From Macrobid] nitrofurantoin Allergy Hives Verified 03/12/17 11:04 macrocrystalline [From Macrobid] tramadol Allergy Hives Verified 03/12/17 11:04 hydrocodone AdvReac Severe Nausea Verified 03/12/17 11:04 Medications: Current Medications Acetaminophen (Tylenol) 650 mg UT Q4H PRN PRN Reason: Headache/Fever or Pain Albuterol Sulfate (Proventil Hfa) 2 puff INH Q4HR PRN PRN Reason: sob/wheezing Fentanyl (Sublimaze) 25 mcg SLOW IVP Q3H PRN PRN Reason: Pain Stop: 12/18/17 23:59 Last Admin: 12/17/17 12:04 Dose: 25 mcg Hydralazine HCl (Apresoline) 10 mg SLOW IVP Q6H PRN PRN Reason: SBP Greater Than 170 Piperacillin Sod/Tazobactam (Sod 3.375 gm/ Sodium Chloride) 100 mls @ 200 mls/ hr IVPB Q6HR [facility] Last Admin: 12/17/17 12:11 Dose: 100 mls Dextrose/Sodium Chloride (D5 0.9% Ns) 1,000 mls @ 70 mls/hr IV .[id number] [facility] Last Admin: 12/17/17 00:15 Dose: 1,000 mls Acetaminophen 650 mg/ Device 65 mls @ 400 mls/hr IVPB Q6H PRN PRN Reason: Fever > 101 Stop: 12/18/17 08:40 Last Admin: 12/17/17 09:40 Dose: 65 mls Mometasone Furoate/Formoterol Fumar (Dulera 100 Mcg/5 Mcg Inhaler) 2 puff INH BID-RT [facility] Last Admin: 12/17/17 07:06 Dose: 2 puff Ondansetron HCl (Zofran) 4 mg IVP Q6H PRN PRN Reason: Nausea/Vomiting Pantoprazole Sodium (Protonix) 40 mg IVP Q12HR [facility] Last Admin: 12/17/17 09:39 Dose: 40 mg Sodium Chloride (Flush - Normal Saline) 10 ml IVF Q12HR [facility] Last Admin: 12/17/17 09:40 Dose: 10 ml Sodium Chloride (Flush - Normal Saline) 10 ml IVF PRN PRN PRN Reason: Saline Flush
[2017-12-17] MEDS ORDERED: Dextrose 5% in Water 1,000 ML IV PRN (16:24)
[2017-12-17] MEDS ORDERED: HumaLOG 300 UNITS/3 ML VIAL SC PRN (16:24)
[2017-12-17] MEDS ORDERED: Dextrose 50% Abboject 50 ML SYRINGE SLOW IVP PRN (16:24)
[2017-12-18 05:22] LABS: #Basophils 0.1 thou/uL (0.0-0.2); #Eosinphils 0.2 thou/uL (0.0-0.7); #Monocytes 0.5 thou/uL (0.11-0.59); #Neutrophils 3.6 thou/uL (1.40-6.50); %Basophils 1.3 % (0.0-1.0); %Eosinophils 2.4 % (0.0-10.0); %Lymphocytes 47.4 % (21.0-51.0); %Neutrophils 42.8 % (42.0-75.0); Hemoglobin 9.8 g/dL (12.0-16.0); Mean Corpuscular HGB CONC 32.4 g/dL (32.0-36.0); Mean Corpuscular Hemoglobin 25.8 pg (27.0-31.0); Mean Corpuscular Volume 79.6 fl (81.0-99.0); Mean Platelet Volume 7.5 fL (7.4-10.4); Platelet Count 270 thou/uL (130-400); RBC Distribution Width 14.8 % (11.5-14.5); Red Blood Cell (RBC) Count 3.81 mill/uL (4.20-5.40); White Blood Cell (WBC) Count 8.4 thou/uL (4.8-10.8)
[2017-12-18] MEDS: Piperacillin/Tazobactam 3.375 GM in Sodium Chloride 0.9% 100 ML IVPB SCH ×2 (05:30→12:41)
[2017-12-18 05:36] LABS: Anion Gap 10 mmol/L (10-20); BUN (Urea Nitrogen) 11 mg/dL (7.0-18.7); Calc. Creatinine Clearance 108 mL/min (70-130); Calcium 8.7 mg/dL (7.8-10.44); Carbon Dioxide 25 mmol/L (22-29); Chloride 109 mmol/L (98-107); Estimated GFR-MDRD 72; Glucose 100 mg/dL (70-105); Potassium 3.7 mmol/L (3.5-5.1); Sodium 140 mmol/L (136-145)
[2017-12-18] MEDS: Fentanyl 100 MCG/2 ML VIAL SLOW IVP PRN ×4 (05:52→23:10)
[2017-12-18] MEDS: Mometasone/Formoterol 120 PUFF INHALER INH SCH ×2 (06:58→18:46)
--- NOTE | 2017-12-18 09:01 | PRG ---
DATE OF SERVICE: 12/17/2017 SUBJECTIVE: Ms. Brewer states she has been able to talk with no pain. [place] a little bit of neck pain if she turned back and forth and when she swallows her spit. She has had no fevers, she has had no chills, no rigors. She states the pain medicines are working quite well. MEDICATIONS: She continues on Tylenol p.r.n., fentanyl p.r.n. 25 q.3 hours, Protonix, and Zosyn. OBJECTIVE: VITAL SIGNS: Temperature is 98.2, pulse 86, blood pressure 160/83. NECK: Supple. There is no crepitus. There is mild tenderness bilaterally. There is no adenopathy. LUNGS: Chest is nontender. HEART: Regular rate and rhythm without clicks or murmurs. ABDOMEN: Nontender. LABORATORY STUDIES: White count 8.0, hemoglobin 10.0, platelet count 284. INR 1.1, BUN and creatini ne are 15 and 1.14. ASSESSMENT: Questionable edema versus hematoma of the proximal esophagus with partial thickness tear . No signs of mediastinitis. No erosive soft tissue infections. RECOMMENDATIONS: Barium swallow tomorrow to make sure there is no esophageal leak. If this is saulo l, we can start a liquid diet.
[2017-12-18] MEDS: Pantoprazole 40 MG VIAL IVP SCH (09:06)
--- NOTE | 2017-12-18 09:40 | RAD ---
SINGLE CONTRAST ESOPHAGRAM: INDICATIONS: Possible esophageal tear. COMPARISON: CT of the soft tissues of the neck dated 12/16/2017. TECHNIQUE: Gastrografin and thin-barium contrast was administered. FLUOROSCOPIC TIME: 0.9 minutes. TOTAL EXPOSURE: 11.035 Gy per cm2. FINDINGS: No definite intraluminal mass or stricture identified. No extraluminal extravasation of contrast is present. The visualized gastroesophageal junction is within normal limits. IMPRESSION: No evidence of extraluminal contrast extension or leak. POS: HAL
[2017-12-18] MEDS: Dextrose 5 % And 0.9 % NaCl 1,000 ML IV SCH (09:43)
[2017-12-18] MEDS ORDERED: GASTROGRAFIN 30 ML BOT ONE (11:41)
--- NOTE | 2017-12-18 17:14 | PDOC.PN ---
- Subjective Encounter Start Date: 12/18/17 Encounter Start Time: 09:00 Pt seen for followup re: dysphagia. Reports some pain with swallowing, but better. had nausea and vomited after drinking barium. - Objective MAR Reviewed: Yes Vital Signs & Weight: Vital Signs (12 hours) Temp Pulse Resp BP Pulse Ox 12/18/17 12:00 98.2 F 68 18 108/62 100 12/18/17 08:00 98.5 F 68 18 97 Weight Admit Weight 213 lb Weight 213 lb I&O: 12/17/17 12/18/17 12/19/17 06:59 06:59 06:59 Intake Total 725 240 Output Total 200 Balance 525 240 Result Diagrams: 12/18/17 04:32 12/18/17 04:32 Additional Labs: Accuchecks 12/18/17 12/18/17 12/18/17 16:00 11:31 05:26 POC Glucose 112 H 89 105 12/17/17 19:27 POC Glucose 81 Phys Exam - Physical Examination Constitutional: NAD HEENT: moist MMs Neck: supple Respiratory: clear to auscultation bilateral Cardiovascular: RRR Gastrointestinal: soft Neurological: moves all 4 limbs Psychiatric: normal affect Skin: no rash Dx/Plan (1) Difficulty swallowing Code(s): R13.10 - DYSPHAGIA, UNSPECIFIED Status: Acute Comment: barium swallow normal, pt to start clear fluids. (2) Diabetes Code(s): E11.9 - TYPE 2 DIABETES MELLITUS WITHOUT COMPLICATIONS Status: Chronic Comment: Continue accuchecks, insulin sliding scale (3) Gastroesophageal reflux disease Code(s): K21.9 - GASTRO-ESOPHAGEAL REFLUX DISEASE WITHOUT ESOPHAGITIS Status: Chronic Comment: Continue IV PPI (4) HTN (hypertension) Code(s): I10 - ESSENTIAL (PRIMARY) HYPERTENSION Status: Chronic Comment: Monitor vital signs, titrate antihypertensives as needed. (5) Obesity (BMI 35.0-39.9 without comorbidity) Code(s): E66.9 - OBESITY, UNSPECIFIED Status: Chronic (6) Anxiety and depression Code(s): F41.9 - ANXIETY DISORDER, UNSPECIFIED; F32.9 - MAJOR DEPRESSIVE DISORDER, SINGLE EPISODE, UNSPECIFIED Status: Chronic - Plan * . Review of Systems - Review of Systems ENT: Throat Pain Respiratory: negative: Cough, Dry, Shortness of Breath, Hemoptysis, SOB with Excertion, Pleuritic Pain, Sputum, Wheezing Cardiovascular: negative: chest pain, palpitations, orthopnea, paroxysmal nocturnal dyspnea, edema, light headedness, other Gastrointestinal: Nausea, Vomiting - Medications/Allergies Allergies/Adverse Reactions: Allergies Allergy/AdvReac Type Severity Reaction Status Date / Time Iodinated Contrast- Oral and Allergy Severe Short of Verified 03/12/17 11:04 IV Dye Breath [Iodinated Contrast Media - IV Dye] ketorolac tromethamine Allergy Hives Verified 03/12/17 11:04 [From Toradol] nitrofurantoin Allergy Hives Verified 03/12/17 11:04 [From Macrobid] nitrofurantoin Allergy Hives Verified 03/12/17 11:04 macrocrystalline [From Macrobid] tramadol Allergy Hives Verified 03/12/17 11:04 hydrocodone AdvReac Severe Nausea Verified 03/12/17 11:04 Medications: Current Medications Acetaminophen (Tylenol) 650 mg CA Q4H PRN PRN Reason: Headache/Fever or Pain Albuterol Sulfate (Proventil Hfa) 2 puff INH Q4HR PRN PRN Reason: sob/wheezing Dextrose/Water (Dextrose 50%) 25 gm SLOW IVP PRN PRN PRN Reason: Hypoglycemia Fentanyl (Sublimaze) 25 mcg SLOW IVP Q6H PRN PRN Reason: Moderate to Severe Pain (6-10) Stop: 12/18/17 23:59 Glucagon (Glucagon) 1 mg IM PRN PRN PRN Reason: Hypoglycemia Hydralazine HCl (Apresoline) 10 mg SLOW IVP Q6H PRN PRN Reason: SBP Greater Than 170 Dextrose/Water (D5w) 1,000 mls @ 0 mls/hr IV .Q0M PRN; As Directed PRN Reason: Hypoglycemia Insulin Human Lispro (Humalog) 0 units SC .MILD SLIDING SCALE PRN PRN Reason: Mild Correctional Scale Mometasone Furoate/Formoterol Fumar (Dulera 100 Mcg/5 Mcg Inhaler) 2 puff INH BID-RT [facility] Last Admin: 12/18/17 06:58 Dose: 2 puff Ondansetron HCl (Zofran) 4 mg IVP Q6H PRN PRN Reason: Nausea/Vomiting Last Admin: 12/18/17 09:42 Dose: 4 mg Pantoprazole Sodium (Protonix) 40 mg PO DAILY [facility] Sodium Chloride (Flush - Normal Saline) 10 ml IVF Q12HR [facility] Last Admin: 12/18/17 09:06 Dose: 10 ml Sodium Chloride (Flush - Normal Saline) 10 ml IVF PRN PRN PRN Reason: Saline Flush
--- NOTE | 2017-12-19 00:40 | PRG ---
DATE OF SERVICE: 12/18/2017 SUBJECTIVE: Ms. Brewer felt some neck pain. She is able to swallow liquids without difficulty. She had her x-ray today, upper GI showed no evidence of laceration, tear, inflammation or stricturing in the upper esophagus, no leak. She is drinking liquids. Denies any coughing or choking or pain. OBJECTIVE: VITAL SIGNS: Temperature is 98.2, pulse 68, and blood pressure 108/62. LUNGS: Clear. ABDOMEN: Mildly tender. There is no rebound, no guarding. There is no crepitus. EXTREMITIES: No clubbing, cyanosis or edema. LABORATORY STUDIES: White count 8.4, hemoglobin 9.8 and platelet count 270. IMAGING DATA: X-ray films reviewed by myself. ASSESSMENT: Concern for possible mucosal laceration at the time of esophagogastroduodenoscopy dilata tion earlier in the week. CT scan raised the question of possible intramural tear, but no perforatio n of the esophagus. There was a question whether maybe there was some edema in the esophagus where t hat was just from less than full distention. She has had an x-ray now that shows no extravasation of contrast. No abdominal mass or stricturing. RECOMMENDATIONS: I would advance her diet to full liquids, stop her IV narcotics and move to p.o. C hange PPI to p.o. We will stop antibiotics. She will go home later this afternoon or tomorrow. I h tha asked to follow up me in the office in [address] Smith is mathematics education professor if needed.
[2017-12-19 06:04] LABS: Anion Gap 7 mmol/L (10-20); BUN (Urea Nitrogen) 9 mg/dL (7.0-18.7); Calc. Creatinine Clearance 132 mL/min (70-130); Calcium 8.6 mg/dL (7.8-10.44); Carbon Dioxide 25 mmol/L (22-29); Chloride 111 mmol/L (98-107); Estimated GFR-MDRD 90; Glucose 99 mg/dL (70-105); Potassium 3.8 mmol/L (3.5-5.1); Sodium 139 mmol/L (136-145)
[2017-12-19 06:47] LABS: Anisocytosis SLIGHT = 6-15 cells (100X) (0-5/hpf); Band 1 % (5-11); Hemoglobin 9.6 g/dL (12.0-16.0); Hypochromia SLIGHT = 6-15 cells (100X) (0-5/hpf); Lymphocytes 50 % (21-51); MDiff Complete? YES; Mean Corpuscular HGB CONC 31.9 g/dL (32.0-36.0); Mean Corpuscular Hemoglobin 25.6 pg (27.0-31.0); Mean Corpuscular Volume 80.1 fl (81.0-99.0); Mean Platelet Volume 7.2 fL (7.4-10.4); Monocytes 7 % (0-10); Neutrophil 40 % (42-75); PLT Morphology Comment Appears Adequate; Platelet Count 254 thou/uL (130-400); Polychromasia SLIGHT = 2-3 cells (100X) (0-2/hpf); RBC Distribution Width 14.9 % (11.5-14.5); Reactive Lymphocytes 2 % (0-10); Red Blood Cell (RBC) Count 3.77 mill/uL (4.20-5.40); White Blood Cell (WBC) Count 8.9 thou/uL (4.8-10.8)
[2017-12-19] MEDS: Mometasone/Formoterol 120 PUFF INHALER INH SCH (07:12)
[2017-12-19 07:53] VITALS: BP 128/84; TEMP 97.8
--- NOTE | 2017-12-19 15:17 | PDOC.PN ---
- Subjective Encounter Start Date: 12/19/17 Encounter Start Time: 15:15 Ms. Brewer was seen today in follow-up. She does not have any complaints. She denies any difficulty with swallowing. - Objective MAR Reviewed: Yes Vital Signs & Weight: Vital Signs (12 hours) Temp Pulse Resp BP Pulse Ox 12/19/17 08:00 97.8 F 62 18 98 12/19/17 07:52 97.8 F 62 18 128/84 100 12/19/17 07:12 62 15 100 Weight Admit Weight 213 lb Weight 213 lb I&O: 12/18/17 12/19/17 12/20/17 06:59 06:59 06:59 Intake Total 480 600 Balance 480 600 Result Diagrams: 12/19/17 05:36 12/19/17 05:36 Additional Labs: Accuchecks 12/19/17 12/18/17 12/18/17 11:22 19:52 16:00 POC Glucose 94 124 H 112 H Phys Exam - Physical Examination HEENT: PERRLA Respiratory: no wheezing, no rales, no rhonchi, clear to auscultation bilateral Cardiovascular: RRR, no significant murmur, no rub Gastrointestinal: soft, non-tender, positive bowel sounds Musculoskeletal: no edema Dx/Plan (1) Dysphagia Code(s): R13.10 - DYSPHAGIA, UNSPECIFIED Status: Acute (2) Diabetes Code(s): E11.9 - TYPE 2 DIABETES MELLITUS WITHOUT COMPLICATIONS Status: Chronic Comment: Continue accuchecks, insulin sliding scale (3) Gastroesophageal reflux disease Code(s): K21.9 - GASTRO-ESOPHAGEAL REFLUX DISEASE WITHOUT ESOPHAGITIS Status: Chronic Comment: Continue IV PPI (4) HTN (hypertension) Code(s): I10 - ESSENTIAL (PRIMARY) HYPERTENSION Status: Chronic Comment: Monitor vital signs, titrate antihypertensives as needed. - Plan * Dysphagia- resolved * HTN- blood pressure is stable * She is stable for discharge home..
--- NOTE | 2017-12-19 15:42 | DIS ---
PRIMARY CARE PHYSICIAN: Ross Rizo M.D. DATE OF ADMISSION: 12/16/2017 DATE OF DISCHARGE: 12/19/2017 DISCHARGE DISPOSITION: Home. PRIMARY DISCHARGE DIAGNOSES: 1. Dysphagia, resolved. 2. Esophageal stricture, status post esophageal dilatation. 3. Hepatitis C. 4. Diabetes mellitus, type 2. 5. Chronic iron deficiency anemia. 6. Hypertension. 7. Von Willebrand disease. DISCHARGE MEDICATIONS: Include, Protonix 40 mg twice a day, MiraLax 17 grams daily, promethazine 12. 5 mg t.i.d. as needed, Senokot 1 tablet as needed, Ambien 5 mg as needed, Zofran 4 mg q.8 hours as ne eded, Bentyl 10 mg p.r.n., Symbicort 80/4.5 two puffs twice a day, amlodipine 5 mg daily, and albuter ol 2 puffs q.4 as needed. PROCEDURES DONE DURING ADMISSION: The patient had a CT scan of the chest and which there was some mi ld motion artifact. There is apparent mucosal thickening involving approximately 5.5 cm segment of t he proximal esophagus, partially due in part to incomplete distention. There was some presence of a mural mass or intramural hematoma was not excluded. Patient also had a CT scan of the neck, which th e findings were essentially the same. The patient also had a barium swallow showing no evidence of e xtraluminal contrast extension or leak. CODE STATUS: FULL CODE. ALLERGIES: IODINATED CONTRAST, ORAL and IV DYE, KETOROLAC, MACROBID, NITROFURANTOIN, and TRAMADOL. HOSPITAL COURSE: Ms. Brewer is a pleasant 42-year-old female, who came to the emergency room after co mplaining of pain, it was soreness in her throat and her upper chest, and difficulty swallowing. Thi s was after she recently had an esophageal dilatation. She was evaluated in the ER and had a CT scan of the neck and chest, in which there was some concern for possible mural thickening in the esophagu s, making there be a concern for either an esophageal tear or hematoma. She was admitted and seen by Gastroenterology. She underwent a barium swallow, which did not demonstrate any extravasation of th e oral contrast. During the course of her admission, her dysphagia resolved, and by the time she was discharged, she was able to tolerate a solid diet and essentially, will be discharged home on the [facility] medications that she was admitted with. She is to have close outpatient followup with Gastroenter ology and also with her primary care physician in 1-2 weeks.
== END 2017-12-19 15:54 | disposition home or self-care (01) | DRG 392 ==
LOC: ERS 18:20 → ERHOLD 12-16 03:15 → OBSVTOIN 12-16 03:15 → 2SW 12-16 07:34 → T4-B 12-16 19:53
PROVIDERS: ADMIT Internal Medicine Infectious Disease; ATTEND Internal Medicine Infectious Disease
DX: R13.10 Dysphagia, unspecified (principal); D68.0 Von Willebrand disease; B19.20 Unspecified viral hepatitis C without hepatic coma; D57.3 Sickle-cell trait; E11.9 Type 2 diabetes mellitus without complications; D50.9 Iron deficiency anemia, unspecified; I10 Essential (primary) hypertension; N28.9 Disorder of kidney and ureter, unspecified; E86.0 Dehydration; K21.9 Gastro-esophageal reflux disease without esophagitis; E66.9 Obesity, unspecified; Z68.35 Body mass index [BMI] 35.0-35.9, adult; F41.9 Anxiety disorder, unspecified; F32.9 Major depressive disorder, single episode, unspecified
CPT/HCPCS: 36415; 36416; 70490; 71045; 71250; 74150; 74220; 80048; 80053; 82553; 83605; 83690; 84484; 85025; 85610; 85730; 87324; 87449; 93005; 96361; 96365; 96375; J2270; A4216; C9113; J0131; J1170; J2405; J2543; J3010; J7050

== ENCOUNTER 2018-02-11 09:20 | Outpatient (CLI) | payer OTHER ==
--- NOTE | 2018-02-11 12:47 | MRI ---
MRI RIGHT WRIST WITHOUT CONTRAST: INDICATIONS: Wrist pain after surgical removal of a lump. TECHNIQUE: Multiplanar, multisequence MR images were obtained of the right wrist without IV contrast. FINDINGS: There is a surface marker placed within the region of pain involving the right wrist, at the level of the proximal carpal row. No definite signal abnormality is seen within the subcutaneous tissues. N o mass is demonstrated. The extensor compartments of the left wrist appear within normal limits. Th e extensor tendons appear intact. There is a central perforation involving the TFC, which may be dev elopmental. The radial and peripheral ulnar components appear intact. The scapholunate and lunatotr iquetral ligaments appear intact. The extrinsic ligaments appear intact. The carpal alignment is wi thin normal limits. There is a small subchondral cyst like abnormality involving the distal scaphoid . There is mild degenerative change involving the thumb metacarpophalangeal joint. No acute fractur e is evident. The carpal tunnel and its contents appear within normal limits. The FCR and FCU tendo ns appear within normal limits. IMPRESSION: 1. No MRI explanation for the patient's radial wrist pain. 2. Small central perforation of the triangular fibrocartilage complex may be developmental in nature . POS: [facility]
== END 2018-02-11 09:21 | disposition home or self-care (01) ==
LOC: MRI 09:20
PROVIDERS: ATTEND Orthopaedic Surgery
DX: M19.031 Primary osteoarthritis, right wrist (principal); S63.591A Other specified sprain of right wrist, initial encounter

== ENCOUNTER 2018-02-15 09:17 | Outpatient (CLI) | payer OTHER ==
--- NOTE | 2018-02-15 13:02 | EKG ---
Test Reason : Blood Pressure : / mmHG Vent. Rate : 063 BPM Atrial Rate : 063 BPM P-R Int : 138 ms QRS Dur : 090 ms QT Int : 400 ms P-R-T Axes : 060 063 039 degrees QTc Int : 409 ms Normal sinus rhythm Normal ECG When compared with ECG of 15-DEC-2017 18:35, No significant change was found Confirmed by KURTIS REZA, SCoral ([id number]) on 02/15/2018 1:01:59 PM Referred By: SHELIA Confirmed By:DR. Rosana HULL MD
== END 2018-02-15 09:18 | disposition home or self-care (01) ==
LOC: LABBT 09:17
PROVIDERS: ATTEND Orthopaedic Surgery
DX: Z01.810 Encounter for preprocedural cardiovascular examination (principal); M19.031 Primary osteoarthritis, right wrist; Z88.6 Allergy status to analgesic agent; Z79.1 Long term (current) use of non-steroidal anti-inflammatories (NSAID); Z79.891 Long term (current) use of opiate analgesic
CPT/HCPCS: 93005; 93010

== ENCOUNTER → 2018-02-18 | Day surgery (SDC) | payer OTHER ==
[2018-02-15 09:33] VITALS: BMI 35.7
[~2018-02-18] MED LIST: Bupivacaine HCl 0.5%/Epinephrine 1:200,000/PF 30 ml Vial ONE; Dexamethasone 20 MG/5 ML VIAL ONE; Fentanyl 100 MCG/2 ML VIAL ONE; Glycopyrrolate 0.2 MG/ML 5 ML SYRINGE ONE; HYDROmorphone 0.5 MG/0.5 ML SYRINGE ONE; Lidocaine 1% PF 5 ML VIAL ONE; Midazolam HCl 2 mg/2 ml Vial ONE; PHENYLEPHRINE-NS 100 MCG/ML 10 ML SYRINGE ONE; PROPOFOL 200 MG/20 ML VIAL ONE; Promethazine HCl 25 MG/ML VIAL ONE
--- NOTE | 2018-02-18 11:36 | OP ---
DATE OF PROCEDURE: 02/18/2018 PREOPERATIVE DIAGNOSIS: Painful cyst of the right scaphoid. POSTOPERATIVE DIAGNOSIS: Painful cyst of the right scaphoid. PROCEDURES: Excisional biopsy of cyst with partial wrist denervation. SURGEON: Fermin Gamez M.D. DESCRIPTION OF PROCEDURE: The patient was brought to the operating room and after administration of general anesthetic intubation, the right upper extremity was prepped and draped in the usual fashion and the tourniquet was inflated. A longitudinal incision was made incorporating a previous incision over the dorsal radial aspect of t he wrist and extending in a radial direction distally like a hockey stick. Flaps were reflected and the sensory branches of the radial nerve were identified and tagged with a vessel loop as was the radha angie branch of the radial artery. The capsule overlying the STT joint was then opened up and the scap hotrapeziotrapezoid joint was inspected. Under fluoroscopy, the cyst on the ulnar edge of the distal scaphoid where it had articulated with the trapezoid and the capitate was identified and curetted ou t and sent as a specimen. The scaphotrapeziotrapezoid joint was carefully inspected and did not appe ar to have any other lesions in it. A small capsulotomy was made in the trapeziometacarpal joint, th ere was inspected as well and did not have any significant degenerative arthritic changes in it. The wounds were copiously irrigated and a look was also made between the scaphoid and the radial styloid and it also appeared without lesion. The sensory branches of the radial nerve were lifted up and al l branches to the wrist joint were removed, excised with a [place] blade. The lateral antebrachial cu taneous nerve was also identified and branches of the wrist joint were removed. The posterior intero sseous nerve had been removed during a previous procedure. The carpal boss area, which had been debr ided at early operation removed was inspected by lifting off the insertions of the extensor carpi rad ialis longus and brevis and there did not appear to be any reactive bone there and this area was then closed up with 3-0 Vicryl. The wound was irrigated again and the skin was closed with nylon after i nfiltrating with Marcaine. A well-padded dressing with a volar plaster splint was applied and the dima thapa was taken to recovery room in satisfactory condition. She was monitored. When she was awake and stable, she was discharged home. She was given a prescrip tion for pain medication, wound care instructions, and followup appointment.
--- NOTE | 2018-02-18 12:32 | RAD ---
THREE VIEWS RIGHT WRIST: Date: 02-18-18 History: Right wrist resection, distal pole of scaphoid bone. FINDINGS: Three intraoperative images are provided. Operative hardware is seen overlying the wrist on image 1 a nd 2. Osseous detail is limited secondary to positioning, intraoperative status and overlying hardwar e. IMPRESSION: Intraoperative imaging as above. POS: [facility]
== END ==
LOC: SDC 06:38
PROVIDERS: ATTEND Orthopaedic Surgery
PROC: 0PBP0ZZ Excision of Right Metacarpal, Open Approach (ICD-10-PCS; principal; 2018-02-18)
DX: M85.631 Other cyst of bone, right forearm (principal); M19.031 Primary osteoarthritis, right wrist; I10 Essential (primary) hypertension; J45.909 Unspecified asthma, uncomplicated; Z91.041 Radiographic dye allergy status; Z88.1 Allergy status to other antibiotic agents; Z88.5 Allergy status to narcotic agent; Z79.51 Long term (current) use of inhaled steroids; Z79.899 Other long term (current) drug therapy
CPT/HCPCS: 76001; 88304; 88311; 96374; J0670; J1170; J2250; J2550; J3010

== ENCOUNTER 2018-05-08 16:27 | Observation (INO) | payer OTHER ==
[~2018-05-08 16:27] MED LIST changes: -Bupivacaine HCl 0.5%/Epinephrine 1:200,000/PF 30 ml Vial ONE; -Dexamethasone 20 MG/5 ML VIAL ONE; -Fentanyl 100 MCG/2 ML VIAL ONE; -Glycopyrrolate 0.2 MG/ML 5 ML SYRINGE ONE; -HYDROmorphone 0.5 MG/0.5 ML SYRINGE ONE; +ISOVUE-370 76%-LOCM 1 ML ONE; -Lidocaine 1% PF 5 ML VIAL ONE; -Midazolam HCl 2 mg/2 ml Vial ONE; -PHENYLEPHRINE-NS 100 MCG/ML 10 ML SYRINGE ONE; -PROPOFOL 200 MG/20 ML VIAL ONE; -Promethazine HCl 25 MG/ML VIAL ONE
[2018-05-08 17:25] LABS: Hemoglobin 11.3 g/dL (12.0-16.0); Mean Corpuscular HGB CONC 32.9 g/dL (32.0-36.0); Mean Corpuscular Hemoglobin 25.9 pg (27.0-31.0); Mean Corpuscular Volume 78.8 fL (78.0-98.0); Mean Platelet Volume 7.1 fL (7.4-10.4); Platelet Count 271 thou/uL (130-400); RBC Distribution Width 14.1 % (11.5-14.5); Red Blood Cell (RBC) Count 4.36 mill/uL (4.20-5.40); White Blood Cell (WBC) Count 7.6 thou/uL (4.8-10.8)
[2018-05-08 17:38] LABS: ALT (SGPT) 15 U/L (8-55); AST (SGOT) 18 U/L (5-34); Albumin 4.2 g/dL (3.5-5.0); Alkaline Phosphatase 104 U/L (40-150); Anion Gap 13 mmol/L (10-20); BUN (Urea Nitrogen) 13 mg/dL (7.0-18.7); Bilirubin, Total 0.3 mg/dL (0.2-1.2); Calc. Creatinine Clearance 0 mL/min (70-130); Calcium 9.2 mg/dL (7.8-10.44); Carbon Dioxide 25 mmol/L (22-29); Chloride 106 mmol/L (98-107); Estimated GFR-MDRD 84; Globulin 3.2 g/dL (2.4-3.5); Glucose 84 mg/dL (70-105); Lipase 16 U/L (8-78); Potassium 3.7 mmol/L (3.5-5.1); Protein, Total 7.4 g/dL (6.0-8.3); Sodium 140 mmol/L (136-145)
[2018-05-08 17:41] LABS: Eosinophils 3 % (0-10); Hypochromia SLIGHT = 6-15 cells (100X) (0-5/hpf); Lymphocytes 56 % (21-51); MDiff Complete? YES; Microcytosis SLIGHT = 6-15 cells (100X) (0-5/hpf); Monocytes 5 % (0-10); Neutrophil 30 % (42-75); PLT Morphology Comment Appears Adequate; Polychromasia SLIGHT = 2-3 cells (100X) (0-2/hpf); Reactive Lymphocytes 6 % (0-10)
[2018-05-08 17:57] LABS: Bilirubin Negative (Negative); Blood, Urine Negative (Negative); Clarity CLEAR (Clear); Glucose, Urine (Dipstick) Negative (Negative); Leukocyte Negative (Negative); Nitrite Negative (Negative); Protein, Urine (Dipstick) Negative (Neg-Trace); Specific Gravity, Urine 1.015 (1.002-1.036); Urobilinogen 0.2 mg/dL (0.2-1.0); pH, Urine 5.5 (5.0-9.0)
[2018-05-08 17:58] LABS: Pregnancy Test - Urine (BHCG) Negative (Negative); Pregu Control Background? CLEAR/WHITE (CLR/WHITE); Pregu Control Bar Appear? YES (CONTROL BAR); Specific Gravity 1.015 (1.002-1.036)
[2018-05-08 18:11] LABS: INR-International Normal Ratio 1.1; PTT 32.2 SEC (22.9-36.1); Prothrombin Time 14.2 SEC (12.0-14.7)
[2018-05-08 18:25] LABS: Troponin I 0.014 ng/mL (< 0.028)
[2018-05-08] MEDS ORDERED: Famotidine 20 MG TAB ONE (18:25)
[2018-05-08] MEDS ORDERED: diphenhydrAMINE 50 MG/ML VIAL ONE (18:25)
[2018-05-08] MEDS ORDERED: Famotidine/PF 20 mg/2ml Vial ONE (18:25)
[2018-05-08] MEDS ORDERED: methylPREDNISolone Sod Succ/PF 125 MG/2 ML VIAL ONE (18:25)
--- NOTE | 2018-05-08 19:44 | CT ---
CT OF ABDOMEN AND PELVIS: 05/08/18 COMPARISON: 04/10/17 HISTORY: Abdominal pain, rectal bleeding. TECHNIQUE: Serial axial CT imaging at 5 mm intervals from lung bases through pubic symphysis with IV contrast. C oronal reformatted imaging obtained. FINDINGS: The imaged lung bases are unremarkable. Cholecystectomy clips are present. No pneumoperitoneum or sig nificant free fluid. Cholecystectomy clips are present. The liver, spleen, pancreas, adrenal glands, and kidneys are unremarkable. Trace free fluid noted in the pelvic cul-de-sac. The patient appears status post hysterectomy. There is no evidence for bowel inflammatory change or obstruction. The vascular structures are unremarkable. No lymphadenopathy is seen. Osseous structures demonstrate no acute findings. IMPRESSION: No acute findings. POS: [facility]
[2018-05-08] MEDS ORDERED: Pantoprazole 40 MG VIAL ONE ×2 (21:16)
[2018-05-08] MEDS ORDERED: Pantoprazole 80 MG, Admixture Fee 1 EACH in Sodium Chloride 0.9% 100 ML IVP SCH (21:45)
[2018-05-08 23:04] VITALS: BMI 36.7
[2018-05-08] MEDS ORDERED: Acetaminophen 325 MG TAB PO PRN (23:05)
[2018-05-09] MEDS ORDERED: Pantoprazole 40 MG VIAL IVP SCH (09:00)
[2018-05-09] MEDS ORDERED: Midazolam HCl 2 mg/2 ml Vial ONE (10:20)
--- NOTE | 2018-05-09 11:46 | CON ---
DATE OF CONSULTATION: 05/09/2018 REASON FOR CONSULTATION: Abdominal pain and coffee ground emesis and melena. HISTORY OF PRESENT ILLNESS: Lani Brewer is a 42-year-old -Indian woman who has been seen in the past by my GI colleague, Dr. Roddy Jarvis. She has a lot of issues with chronic abdominal pain and has undergone extensive workup in the past few years including multiple CT scans, endoscopie s and gastric emptying study. Most recently in 11/2017, Dr. Jarvis performed an EGD which was normal . He performed an empiric dilation of the esophagus to 60 [place]. She was hospitalized for a few da ys afterward with complaints of chest pain, but again studies were essentially negative at that point . She has had negative colonoscopies in 2010 and 2015. She had a cholecystectomy in 2016 and append ectomy in 2017. She has continued to have ongoing abdominal pain symptoms. Dr. Jarvis' impression h as been that she has functional dyspepsia. She also does have a chronic anemia and had told him in t he past that she was diagnosed with von Willebrand disease and thalassemia trait. Baseline hemoglobi n is anywhere from 9-11. She tells me that she had actually been doing well for several months, but over the past couple of we eks, she has begun having worsening pain in the epigastrium. There is also bloating and perceived ab dominal distention in the epigastric area. This is fairly constant, also over the course of time, airsteo soni says her bowel movements have changed. She is having bowel movements that are black and tarry. Aristeo shafer has reported this in the past as well. This has also been going on for the past couple of weeks. She has had nausea and a few episodes of emesis, but then yesterday she had some coffee ground emesis and this prompted her presentation. Laboratory studies show hemoglobin of 11.3, but then this is ab out her baseline. Otherwise, troponin, CMP and lipase are all normal. She was admitted to the [facility] overnight and started on a Protonix drip. She is n.p.o. this morning. A CT of the abdomen and p shireen from last night is also unremarkable. REVIEW OF SYSTEMS: Full review of systems including constitutional, head, eyes, ears, nose, throat, GI, , cardiovascular, respiratory, musculoskeletal, and neurologic systems is negative except as no lilibteh in the HPI. PAST MEDICAL HISTORY: Sickle cell trait, borderline hypertension, borderline diabetes, Von Willebran d disease, appendectomy 2017, cholecystectomy 2016, colonoscopy 2016, which was negative, normal esop hagogastroduodenoscopy in 11/2017, with esophageal dilation to 60 [place] at that time. ALLERGIES: IV CONTRAST, CODEINE, KETOROLAC, NITROFURANTOIN, TRAMADOL, HYDROCODONE. HOME MEDICATIONS: Protonix 40 mg b.i.d., Symbicort, Norvasc, Ambien, senna p.r.n., promethazine p.r. n. INPATIENT MEDICATIONS: Protonix IV drip, morphine p.r.n., Tylenol p.r.n. FAMILY HISTORY: Negative for colon cancer and liver disease. SOCIAL HISTORY: Negative for alcohol, drugs, tobacco. PHYSICAL EXAMINATION: VITAL SIGNS: Temperature 97.9, pulse 60, blood pressure 129/60, 93% oxygen saturation on room air. GENERAL: A 42-year-old -Indian woman lying in bed comfortably in no acute distress. SKIN: No jaundice, no rash visible or palpable. EYES: No scleral icterus. Extraocular movements intact. ENT: Mucous membranes moist, no oral lesions. LYMPH: No submandibular, supraclavicular lymphadenopathy. THYROID: Nontender to palpation. HEART: Regular rate and rhythm. LUNGS: Clear to auscultation bilaterally. ABDOMEN: Mild distention, tympanitic to percussion. Bowel sounds present, soft, tender to palpation in the epigastrium, but no guarding or rebound tenderness. No hernia defect appreciated. EXTREMITIES: No peripheral edema. VESSELS: Radial pulses 2+ bilaterally. NEUROLOGICAL: Cranial nerves II-XII intact bilaterally. No focal deficits. LABORATORY STUDIES: Hemoglobin 11.3, which is at her baseline, WBC 7.6, platelets 271. INR 1.1, BUN 13, creatinine 0.88. Lipase 16. Troponin negative. Total bilirubin 0.3, alkaline phosphatase 104, AST 18, ALT 15, albumin 4.2. IMAGING STUDIES: CT of the abdomen and pelvis demonstrates no acute processes and gallbladder is abs ent. ASSESSMENT AND PLAN: 1. Epigastric pain, acute on chronic. 2. Melena, reported over the past 2 weeks. 3. Coffee ground emesis. 4. Chronic anemia, at baseline, the patient has had extensive workups in the past which have all ess entially been negative for organic disease, but now is having flare characteristic symptoms. The rep ort of melena and coffee ground emesis are concerning for possible upper gastrointestinal bleeding, t april I note her hemoglobin is at baseline. We will go ahead and perform EGD later today for further investigation. Thank you for the consultation. Please call with questions or concerns.
[2018-05-09] MEDS ORDERED: Ondansetron HCl/PF 4 MG/2 ML Vial IVP PRN (11:49)
[2018-05-09 11:51] VITALS: BP 117/59; TEMP 98.5
[2018-05-09] MEDS ORDERED: PROPOFOL 200 MG/20 ML VIAL ONE (13:26)
--- NOTE | 2018-05-09 13:44 | OP ---
DATE OF PROCEDURE: 05/09/2018 GI ENDOSCOPY NOTE SURGEON: Nitish Haddad M.D. COMMUNICATIONS STATION MANAGER SURGEON: None. PROCEDURE: Esophagogastroduodenoscopy, diagnostic. INDICATION: 1. Acute on chronic epigastric pain. 2. Reported melena. 3. Reported coffee-ground emesis. 4. Chronic anemia, at baseline. MEDICATIONS: See Anesthesia record. FINDINGS: After discussion of the risks, benefits and alternatives of the procedure, informed consen t was obtained and witnessed. Pre-endoscopic cardiopulmonary examination was satisfactory. Timeout was performed before sedation was achieved. Sedation was achieved with Anesthesia assistance in the endoscopy unit. A Pentax adult upper endoscope was placed into the oropharynx and passed through the cricopharyngeus under direct visualization. The esophageal mucosa appeared normal throughout with a normal-appearing Z-line. The endoscope was then advanced into the stomach. Forward and retroflexed views of the entire gastric mucosa were obtained. The gastric mucosa appeared normal throughout. T here was no evidence of any erosions or ulcerations or gastritis or any other mucosal abnormalities. The endoscope was advanced through the pylorus and into the first and second portions of the duodenu m, which also appeared normal. The upper endoscope was then completely withdrawn and the patient all owed to recover. The patient tolerated the procedure well. There were no immediate post-procedure c omplications. IMPRESSION: Normal esophagogastroduodenoscopy. RECOMMENDATIONS: 1. Symptomatic care with antiemetics and analgesia as needed. 2. Advance diet as tolerated. 3. The patient can follow up with Dr. Jarvis as an outpatient. Please call back if needed.
--- NOTE | 2018-05-09 18:31 | HP ---
DATE OF ADMISSION: 05/09/2018 PRIMARY CARE PHYSICIAN: Dr. Rizo. CHIEF COMPLAINT: Abdominal pain. HISTORY OF PRESENT ILLNESS: This is a 42-year-old female who initially presented to the emergency department complaining of midepigastric abdominal pain over the last 1-2 weeks. The p atient localizes the pain in the upper abdomen with decreased appetite with some nausea and vomiting x2 episodes on the date of admission. The patient also states she had dark blood in her emesis as we ll as dark tarry stools over the last 1-2 days. The patient admits to some sensation of abdominal bl oating and decreased appetite. The patient with longstanding history of nonspecific abdominal pain, undergoing multiple endoscopies as well as colonoscopies in 2010 and 2015 showing negative findings. The patient also underwent EGD evaluation in 11/2017 showing negative findings. The patient denies any recent travel history, change to her dietary habits, family members with similar symptoms, fever, back pain or dysuria. The patient denied any left arm or jaw pain. The patient does state she take s Protonix 40 mg twice a day as well as simethicone without specific change to her symptoms. In the emergency room, the patient underwent general evaluation including CT of the abdomen and pelvis showi ng no acute process. Screening metabolic survey showed hemoglobin of 11, similar to baseline values noted in November as well as early 04/2018. The patient received IV Protonix 80 mg x1 followed by Porter nix infusion. The patient also received intravenous morphine sulfate, Benadryl, Pepcid and Solu-Medr ol. PAST MEDICAL HISTORY: 1. Gastroesophageal reflux. 2. Hypertension. 3. Question of von-Willebrand disease. 4. Sickle cell trait. PAST SURGICAL HISTORY: 1. Status post cholecystectomy in 2015. 2. Status post appendectomy in 2016. 3. Status post colonoscopy in 2010 and 2015 with negative findings. 4. Status post EGD 11/2017 negative. 5. Status post esophageal dilation. CURRENT MEDICATIONS: 1. Amlodipine 5 mg 1 tab p.o. daily. 2. Budesonide/formoterol 80/4.5 mg 2 puffs inhaled b.i.d. 3. Promethazine 12.5 mg p.o. t.i.d. 4. Senokot-S 1 tablet p.o. daily p.r.n. 5. Ambien 10 mg p.o. at bedtime p.r.n. 6. Protonix 40 mg p.o. b.i.d. ALLERGIES: 1. IODINE CONTRAST. 2. CODEINE. 3. MACROBID. 4. TORADOL. 5. HYDROCODONE. FAMILY HISTORY: No inheritable disease per patient report. SOCIAL HISTORY: No alcohol, tobacco or illicit drug use. Resides in [place], [place]. Disabled. REVIEW OF SYSTEMS: The following complete review of systems was negative, unless otherwise mentioned in the HPI or below: Constitutional: Weight loss or gain, ability to conduct usual activities. Sk in: Rash, itching. Eyes: Double vision, pain. ENT/Mouth: Nose bleeding, neck stiffness, pain, te nderness. Cardiovascular: Palpitations, dyspnea on exertion, orthopnea. Respiratory: Shortness of breath, wheezing, cough, hemoptysis, fever or night sweats. Gastrointestinal: Poor appetite, abdom inal pain, heartburn, nausea, vomiting, constipation, or diarrhea. Genitourinary: Urgency, frequenc y, dysuria, nocturia. Musculoskeletal: Pain, swelling. Neurologic/Psychiatric: Anxiety, depressio n. Allergy/Immunologic: Skin rash, bleeding tendency. Otherwise negative except as stated per HPI. PHYSICAL EXAMINATION: VITAL SIGNS: Currently, blood pressure 117/58, pulse 80, respiratory rate 18, temperature 97.6 degre es Fahrenheit, O2 saturation 99% on room air. GENERAL APPEARANCE: This is a 42-year-old female, alert and oriented x3, pleasant, conversant, in no acute distress. HEENT: Pupils are equal, round and reactive to light and accommodation. Extraocular muscles are int act. No scleral icterus. No conjunctival injection. Nares patent. OP is clear. Teeth in fair rep air. NECK: Supple, no cervical adenopathy, no thyromegaly, no carotid bruits, no JVD appreciated. Cervic al spine with full active and passive range of motion. No meningeal signs appreciated. CHEST: Lungs are clear to auscultation bilaterally. CARDIOVASCULAR: S1, S2 without noted murmur, rub or gallop. ABDOMEN: Obese, soft, nontender, nondistended. Bowel sounds are positive in all four quadrants. Th ere is no hepatosplenomegaly, no abdominal bruits, no rebound or guarding appreciated. EXTREMITIES: Warm and dry with fair turgor. No clubbing, cyanosis or asymmetric edema appreciated. Pulses palpable distally at the dorsalis pedis, posterior tibial and popliteal arteries bilaterally. Capillary refill less than 2 seconds. NEUROLOGIC: Cranial nerves II-XII are grossly intact. No focal or lateralizing signs appreciated. PERTINENT LABORATORY AND X-RAY FINDINGS: Complete metabolic profile within normal limits. CBC showe d a hemoglobin of 11, hematocrit of 34, platelet count 271,000 with 30% neutrophils, 56% lymphocytes. PT 14.2, INR 1.1, PTT 32.2. Urinalysis negative. Urine beta hCG negative, 05/08/2018. Stool Hemo ccult dated 05/08/[address] of the abdomen and pelvis dated 05/08/2018 showed no acute in tra-abdominal process. EKG dated 05/08/2018 by my interpretation shows sinus mechanism with heart ra abdulaziz in the 60s. Normal R-wave progression noted in the precordial leads. Normal axis. No acute ST- T wave changes appreciated. ASSESSMENT AND PLAN: 1. Abdominal pain. Etiology unclear. The patient with chronic recurrent abdominal pain of unclear etiology with multiple negative studies. Continue symptomatic and supportive management. Pain contr ol as clinically indicated. Questionable esophageal etiology. Consult Gastrointestinal service for evaluation. 2. Hematemesis. We will consult Gastrointestinal service for evaluation. Protonix 40 mg IV q.12 ho urs. Avoid NSAIDs. Continue IV fluids. Serial H&H monitoring. 3. Chronic normocytic anemia. Extensive history of anemia dating back to 2011. Multiple endoscopie s and evaluations for anemia with essentially negative findings. Continue supportive management. Ga strointestinal evaluation pending. No current evidence of active gastrointestinal blood loss. 4. Hypertension. Resume Norvasc 5 mg p.o. daily. Serial blood pressure monitoring. 5. Prophylaxis. Sequential compression devices while in bed. Protonix 40 mg IV q.12 hours. 6. Code status is full. Surrogate medical decision maker is the patient's mother.
--- NOTE | 2018-05-09 21:37 | DIS ---
DATE OF ADMISSION: 05/09/2018 DATE OF DISCHARGE: 05/09/2018 DISCHARGE DIAGNOSES: 1. Midepigastric abdominal pain, unclear etiology. 2. Chronic normocytic anemia. 3. Hypertension, stable. 4. Von-Willebrand's disease per history. 5. Gastroesophageal reflux. CONSULTATIONS: Dr. Haddad with GI Service. PERTINENT LABORATORY AND X-RAY FINDINGS: Complete metabolic profile within normal limits. CBC showe d a hemoglobin of 11.3, MCV 79, platelet count 271,000. PT 14.2, INR 1.1, PTT 32.2. Stool Hemoccult negative x1, 05/08/2018. EGD dated 05/09/2018 showed negative findings. HOSPITAL COURSE: The patient was observed on the telemetry unit after initially presenting with ques tionable upper GI bleed and hematemesis as well as abdominal pain. The patient underwent evaluation by the GI service after initial treatment to include Protonix infusion and morphine sulfate. EGD jillian luation was performed 05/09/2018 showing negative findings with current recommendations for symptomat ic and supportive management. The patient to continue Protonix 40 mg p.o. b.i.d. No specific etiolo gy of patient's presentation identified on CT imaging or EGD evaluation. Likely a chronic condition and will need to be monitored on an outpatient basis. Overall, the patient did remain clinically sta ble throughout the hospital course. Telemetry monitoring showed sinus mechanism without acute arrhyt hmia or dysrhythmia. The patient tolerating regular oral intake and voiding appropriately. I have e xamined the patient at the time of discharge and discussed followup instructions with the patient. T he patient is overall clinically stable and ready for discharge 05/09/2018. DISCHARGE MEDICATIONS: 1. Amlodipine 5 mg 1 tab p.o. daily. 2. Symbicort 80/4.5 two puffs inhaled b.i.d. 3. Promethazine 12.5 mg p.o. t.i.d. 4. Senokot-S 1 tablet p.o. daily p.r.n. 5. Ambien 10 mg p.o. at bedtime p.r.n. 6. Protonix 40 mg p.o. b.i.d. FOLLOWUP: The patient will follow up with her primary care provider, Dr. Ross Rizo within 7 days of discharge. The patient may follow up with Dr. Jarvis with GI Service and to call his office for a ppointment time and date. CONDITION ON DISCHARGE: Stable. ACTIVITY: Ad xiao. DIET: Heart healthy. CODE STATUS: Full. DISPOSITION: Home, 05/09/2018.
== END 2018-05-09 14:19 | disposition home or self-care (01) ==
LOC: ERS 16:27 → 2SW 22:19
PROVIDERS: ADMIT Internal Medicine; ATTEND Internal Medicine
PROC: 0DJ08ZZ Inspection of Upper Intestinal Tract, Via Natural or Artificial Opening Endoscopic (ICD-10-PCS; principal; 2018-05-09)
DX: R10.13 Epigastric pain (principal); K92.1 Melena; R11.10 Vomiting, unspecified; I10 Essential (primary) hypertension; K21.9 Gastro-esophageal reflux disease without esophagitis; D57.3 Sickle-cell trait; D53.9 Nutritional anemia, unspecified; D68.0 Von Willebrand disease; Z91.041 Radiographic dye allergy status; Z79.899 Other long term (current) drug therapy; Z88.5 Allergy status to narcotic agent; Z88.1 Allergy status to other antibiotic agents
CPT/HCPCS: 36415; 74177; 80053; 81003; 81025; 82274; 83690; 84484; 85025; 85610; 85730; 86850; 86900; 86901; 93005; 96365; 96366; 96374; 96375; 96376; C9113; G0378; J1200; J2250; J2270; J2704; J2930; J7050; S0028

== ENCOUNTER 2018-07-23 13:55 | Outpatient (CLI) | payer MEDICARE, MEDICAID ==
--- NOTE | 2018-07-23 19:10 | MRI ---
RIGHT KNEE MRI WITH IV CONTRAST: HISTORY: A 42-year-old female with a history of internal derangement of the right knee. History of ovarian ca ncer with bone metastasis. The patient fell approximately three months ago. TECHNIQUE: Multiplanar, multisequence MRI examination of the right knee is performed. FINDINGS: There is a very small globular area of minimal increased signal in the medial patellar cartilage, pos sibly a small focus of chondromalacia patella. No abnormal joint effusion. No evidence for abnormal bone lesions. Medial and lateral menisci, anterior and posterior cruciate ligaments, collateral lig ament complexes, and quadriceps and patellar tendons demonstrate no evidence for significant acute in jury. No abnormal marrow signal. No osteochondral defect. IMPRESSION: Unremarkable knee MRI. No significant acute internal derangement. Possible tiny focus of chondromal acia patella in the medial patellar facet cartilage. POS: [facility]
== END 2018-07-23 13:56 | disposition home or self-care (01) ==
LOC: BICMRI 13:55
PROVIDERS: ATTEND Orthopaedic Surgery
DX: M23.91 Unspecified internal derangement of right knee (principal)

== ENCOUNTER 2018-08-11 11:13 | Outpatient (CLI) | payer MEDICARE, MEDICAID | END 2018-08-11 11:14 | disposition home or self-care (01) | LOC: BICMAMMO 11:13 | PROVIDERS: ATTEND Family Medicine | DX: Z12.31 Encounter for screening mammogram for malignant neoplasm of breast (principal); Z80.3 Family history of malignant neoplasm of breast | CPT/HCPCS: 77063; 77067 ==

== ENCOUNTER 2018-08-17 16:58 | Emergency (ER) | payer MEDICARE, MEDICAID ==
[2018-08-17] MEDS ORDERED: Morphine 4 MG/ML VIAL ONE (17:57)
== END 2018-08-17 18:12 | disposition home or self-care (01) ==
LOC: ERS 16:58
DX: G89.29 Other chronic pain (principal); M54.2 Cervicalgia; M54.9 Dorsalgia, unspecified; E11.9 Type 2 diabetes mellitus without complications; I10 Essential (primary) hypertension; D50.9 Iron deficiency anemia, unspecified; G47.00 Insomnia, unspecified; Z85.43 Personal history of malignant neoplasm of ovary; Z85.6 Personal history of leukemia
CPT/HCPCS: 96372; J2270

== ENCOUNTER 2018-08-24 21:49 | Emergency (ER) | payer MEDICARE, OTHER ==
[2018-08-24 22:31] LABS: Bilirubin Negative (Negative); Blood, Urine Negative (Negative); Clarity CLEAR (Clear); Glucose, Urine (Dipstick) Negative (Negative); Leukocyte Trace (Negative); Nitrite Negative (Negative); Protein, Urine (Dipstick) Negative (Neg-Trace); Specific Gravity, Urine 1.011 (1.002-1.036); Urobilinogen 0.2 mg/dL (0.2-1.0); pH, Urine 6.5 (5.0-9.0)
[2018-08-24 22:34] LABS: Pathc Cast-AUWi Flag 0.14 (0-2.49)
[2018-08-24 23:01] LABS: Hemoglobin 13.2 g/dL (12.0-16.0); Mean Corpuscular HGB CONC 33.5 g/dL (32.0-36.0); Mean Corpuscular Hemoglobin 26.2 pg (27.0-31.0); Mean Corpuscular Volume 78.2 fL (78.0-98.0); Mean Platelet Volume 7.5 fL (7.4-10.4); Platelet Count 346 thou/uL (130-400); RBC Distribution Width 14.3 % (11.5-14.5); Red Blood Cell (RBC) Count 5.03 mill/uL (4.20-5.40); White Blood Cell (WBC) Count 9.6 thou/uL (4.8-10.8)
[2018-08-24 23:10] LABS: Bacteria/HPF None Seen HPF (None Seen); Hyaline Casts/LPF 0-3 HYALINE CAST LPF (0-3 Hyaline); RBC/HPF 0-3 HPF (0-3); Squamous Epithelial 0-3 HPF (0-3); WBC/HPF 0-3 HPF (0-3)
[2018-08-24 23:19] LABS: ALT (SGPT) 13 U/L (8-55); AST (SGOT) 14 U/L (5-34); Albumin 4.5 g/dL (3.5-5.0); Alkaline Phosphatase 112 U/L (40-150); Anion Gap 15 mmol/L (10-20); BUN (Urea Nitrogen) 19 mg/dL (7.0-18.7); Bilirubin, Total 0.3 mg/dL (0.2-1.2); Calc. Creatinine Clearance 0 mL/min (70-130); Calcium 10.4 mg/dL (7.8-10.44); Carbon Dioxide 26 mmol/L (22-29); Chloride 102 mmol/L (98-107); Estimated GFR-MDRD 74; Globulin 3.9 g/dL (2.4-3.5); Glucose 99 mg/dL (70-105); Lipase 40 U/L (8-78); Potassium 4.6 mmol/L (3.5-5.1); Protein, Total 8.4 g/dL (6.0-8.3); Sodium 138 mmol/L (136-145)
[2018-08-24 23:22] LABS: Lymphocytes 55 % (21-51); MDiff Complete? YES; Monocytes 9 % (0-10); Neutrophil 36 % (42-75)
[2018-08-24] MEDS ORDERED: Mag-Al 1200 mg/1200 mg/30 ML UDCUP ONE (23:39)
[2018-08-24] MEDS ORDERED: Lidocaine Viscous Sol 2% 15 ml UD Cup ONE (23:39)
== END 2018-08-25 00:09 | disposition home or self-care (01) ==
LOC: ERS 21:49
DX: R10.13 Epigastric pain (principal); R73.03 Prediabetes; I10 Essential (primary) hypertension; D50.9 Iron deficiency anemia, unspecified; D57.3 Sickle-cell trait
CPT/HCPCS: 36415; 80053; 81003; 81015; 83690; 85025; 93005

== ENCOUNTER 2018-08-31 11:37 | Day surgery (SDC) | payer MEDICARE, MEDICAID ==
[2018-08-30 14:31] VITALS: BMI 36.2
--- NOTE | 2018-08-31 15:01 | MRI ---
MRI LUMBAR SPINE WITHOUT CONTRAST: Date: 08/31/18 HISTORY: Lumbar radiculopathy. Chronic back pain x1 year with progressive worsening. COMPARISON: None. FINDINGS: Appropriate T1 marrow signal intensity of lumbar vertebra. Lumbar spine vertebral body height is main tained. There is no fracture. No significant STIR hyperintensity to suggest vertebral body edema or l igamentous injury. Symmetric signal intensity of the psoas muscles. Appropriate signal intensity of the visualized solid organs. Conus medullaris terminates at the lower aspect of L2. T12-L1: Adequate disc hydration. No significant central canal stenosis or neural foraminal narrowing . L1-L2: Adequate disc hydration. No significant central canal stenosis or neural foraminal narrowing. L2-L3: Adequate disc hydration. No significant central canal stenosis or neural foraminal narrowing. L3-L4: Adequate disc hydration. No significant central canal stenosis or neural foraminal narrowing. L4-L5: Adequate disc hydration. No significant central canal stenosis or neural foraminal narrowing. There is a small paraspinal left synovial cyst measuring 3.0 mm. L5-S1: Desiccation with mild loss of disc space height. There is a central/left subarticular disc pr otrusion. No significant stenosis of the thecal sac. Disc material abuts and partially obscures the t raversing left S1 nerve root. Mild to moderate bilateral neural foraminal narrowing. IMPRESSION: Degenerative changes at L5-S1 as described above. POS: [facility]
== END 2018-08-31 16:35 | disposition home or self-care (01) ==
LOC: SDC/OP 11:37 → EDSTATUS 14:00 → SDC/OP 16:35
PROVIDERS: ATTEND Neurological Surgery
DX: M47.27 Other spondylosis with radiculopathy, lumbosacral region (principal)
CPT/HCPCS: 72148

== ENCOUNTER 2018-10-26 15:26 | Outpatient (CLI) | payer MEDICARE, MEDICAID | END 2018-10-26 15:27 | disposition home or self-care (01) | LOC: CTENTCT 15:26 | PROVIDERS: ATTEND Specialist | DX: J32.9 Chronic sinusitis, unspecified (principal) | CPT/HCPCS: 70486 ==

== ENCOUNTER 2018-10-27 18:47 | Emergency (ER) | payer MEDICARE, OTHER ==
[2018-10-27 19:53] LABS: #Basophils 0.1 thou/uL (0.0-0.2); #Lymphocytes 4.2 thou/uL (1.20-3.40); #Monocytes 1.1 thou/uL (0.11-0.59); #Neutrophils 13.4 thou/uL (1.40-6.50); %Basophils 0.4 % (0.0-1.0); %Eosinophils 0.2 % (0.0-10.0); %Lymphocytes 22.3 % (21.0-51.0); %Neutrophils 71.1 % (42.0-75.0); Hemoglobin 12.1 g/dL (12.0-16.0); Mean Corpuscular HGB CONC 32.8 g/dL (32.0-36.0); Mean Corpuscular Hemoglobin 26.2 pg (27.0-31.0); Mean Corpuscular Volume 79.7 fL (78.0-98.0); Mean Platelet Volume 7.6 fL (7.4-10.4); Platelet Count 354 thou/uL (130-400); RBC Distribution Width 14.7 % (11.5-14.5); Red Blood Cell (RBC) Count 4.64 mill/uL (4.20-5.40); White Blood Cell (WBC) Count 18.9 thou/uL (4.8-10.8)
[2018-10-27 20:16] LABS: ALT (SGPT) 20 U/L (8-55); AST (SGOT) 15 U/L (5-34); Albumin 4.6 g/dL (3.5-5.0); Alkaline Phosphatase 114 U/L (40-150); Anion Gap 14 mmol/L (10-20); BUN (Urea Nitrogen) 17 mg/dL (7.0-18.7); Bilirubin, Total 0.2 mg/dL (0.2-1.2); Calc. Creatinine Clearance 0 mL/min (70-130); Calcium 10.3 mg/dL (7.8-10.44); Carbon Dioxide 25 mmol/L (22-29); Chloride 105 mmol/L (98-107); Estimated GFR-MDRD 86; Globulin 3.6 g/dL (2.4-3.5); Glucose 95 mg/dL (70-105); Potassium 3.8 mmol/L (3.5-5.1); Protein, Total 8.2 g/dL (6.0-8.3); Sodium 140 mmol/L (136-145)
[2018-10-27] MEDS ORDERED: Dexamethasone 4 mg/ml Vial ONE (21:46)
== END 2018-10-27 21:56 | disposition home or self-care (01) ==
LOC: ERS 18:47
DX: J01.90 Acute sinusitis, unspecified (principal); E11.9 Type 2 diabetes mellitus without complications; D50.9 Iron deficiency anemia, unspecified; I10 Essential (primary) hypertension; G47.00 Insomnia, unspecified; Z79.899 Other long term (current) drug therapy
CPT/HCPCS: 36415; 80053; 85025; 99283; J1100

== ENCOUNTER 2018-10-28 11:49 | Day surgery (SDC) | payer MEDICARE, MEDICAID ==
[2018-10-27 12:20] VITALS: BMI 35.2
[2018-10-28 13:19] LABS: BHCG - Serum Indeterminate (NEGATIVE); Pregs Control Background? CLEAR/WHITE (CLR/WHITE); Pregs Control Bar Appear? YES (CONTROL BAR)
[2018-10-28] MEDS ORDERED: Oxymetazoline HCl 0.05% ( 15 ML ) ONE ×2 (13:26→15:09)
[2018-10-28] MEDS ORDERED: Lidocaine 1% w/Epinephrine 1:100K 20 ML VIAL ONE (15:09)
[2018-10-28] MEDS ORDERED: Fentanyl 100 MCG/2 ML VIAL ONE ×3 (15:53→17:17)
[2018-10-28] MEDS ORDERED: PROPOFOL 200 MG/20 ML VIAL ONE (16:02)
[2018-10-28] MEDS ORDERED: Lidocaine 1% PF 5 ML VIAL ONE (16:02)
[2018-10-28] MEDS ORDERED: Rocuronium Bromide 10 MG/ML (10ML VIAL) ONE (16:02)
[2018-10-28] MEDS ORDERED: Ondansetron PF 4 MG/2 ML Vial ONE (16:02)
[2018-10-28] MEDS ORDERED: Dexamethasone 20 MG/5 ML VIAL ONE (16:02)
[2018-10-28] MEDS ORDERED: Acetaminophen 500 MG TAB ONE (18:11)
--- NOTE | 2018-10-29 09:21 | OP ---
DATE OF PROCEDURE: 10/28/2018 PREOPERATIVE DIAGNOSES: Chronic sinusitis, recurrent sinusitis, facial pain, and pansinusitis. POSTOPERATIVE DIAGNOSES: Chronic sinusitis, recurrent sinusitis, facial pain, and pansinusitis. PROCEDURES PERFORMED: 1. Bilateral nasal endoscopy with maxillary antrostomy with removal of tissue. 2. Bilateral nasal endoscopy with total ethmoidectomy. 3. Bilateral nasal endoscopy with frontal sinusotomy. 4. Bilateral nasal endoscopy with sphenoidotomy. 5. Bilateral nasal endoscopy with submucosal resection of inferior turbinates. PROCEDURE IN DETAIL: BILATERAL NASAL ENDOSCOPY WITH MAXILLARY ANTROSTOMY WITH REMOVAL OF TISSUE: The uncinate was then identified and the extent of the uncinate was appreciated by out-fracturing the uncinate with the ball-tip probe. We then used the sickle blade to disarticulate the uncinate from the lateral nasal wall. This was then removed with straight biting and upbiting punches with the remaining shrouds of mucosa and bony septum removed with the micro-debrider. The natural os of the maxillary sinus was then identified and enlarged with the maxillary punches and back biting forceps. BILATERAL NASAL ENDOSCOPY WITH TOTAL ETHMOIDECTOMY: The anterior face of the ethmoid bulla was entered and with the micro-debrider, dissection continued posteriorly to the ground lamella. The limits of dissection included the insertion of the middle turbinate, medial orbital wall, and base of skull. We similarly identified the frontal recess and removed shrouds of bone and debris in that region to obtain patency into the agger nasi region and frontal recess. We then entered the ground lamella and its anteroinferior aspect and proceeded posteriorly, opening the posterior ethmoid air-cell system. Again, the limits of dissection included the base of skull and medial orbital wall. BILATERAL NASAL ENDOSCOPY WITH FRONTAL SINUSOTOMY: Following the ethmoidectomy, we then turned our attention to the frontal nasal recess. The agger nasi cells were addressed and the frontal recess was exposed. The natural opening to the frontal sinus was identified. At this point, any obstructing shrouds of mucosa and bony fragments were removed with a curved microdebrider. The wound was then examined and found to be free of any obstructing debris. We then turned our attention to the contralateral side and performed a similar procedure again under endoscopic visualization using a 45-degree scope. We were able to visualize the frontal recess. Obstructing shrouds of mucosa and bone were removed with a microdebrider. The natural os of frontal sinus was identified and enlarged and irrigated. At this point, the frontal sinusotomy was completed and we turned to the next area of concern. BILATERAL NASAL ENDOSCOPY WITH SPHENOIDOTOMY: The anterior face of the sphenoid was identified and entered in its extreme anteroinferior aspect. A sphenoid punch was then used to enlarge the sphenoidotomy and no injury to the optic nerve or internal carotid artery occurred. BILATERAL NASAL ENDOSCOPY WITH SUBMUCOSAL RESECTION OF INFERIOR TURBINATES: After consent was obtained, the patient was identified, brought to the operating room, and placed on the operating room table in the supine position. Consent was obtained, notifying the patient of the possibility of additional infections, bleeding, brain injury, and eye/orbital injury. The patient was placed on the operating room table, and general endotracheal anesthesia and intravenous access was obtained. The patient was then positioned, prepped and draped for endoscopic sinus surgery. Nasal preparation included trimming nasal vestibular hairs and spraying in topical Afrin. We then placed Afrin topical solution on nasal pledgets and strategically located them intranasally. The perinasal mucosa was injected with 1% lidocaine with 1:100,000 epinephrine in the submucoperichondrial plane of the septum, lateral nasal wall, and anterior to the uncinate. The patient was then prepped and draped in a sterile fashion and positioned for endoscopic sinus surgery. With the 0-degree endoscope, the patient underwent systematic nasal endoscopy. There were no suspicious internasal masses or lesions identified. We then focused our attention to the osteomeatal complex region under the middle turbinate. The inferior turbinates were visualized with a 0 degree endoscope and outfractured with a Violeta elevator. The inferior medial aspect was cauterized with the electrocautery. Hemostasis was obtained . After adequate airway was established, we turned our attention to the contralateral side and used a similar procedure. Again, a [place] elevator was used to outfracture inferior turbinates under endoscopic visualization. With a suction cautery, the free inferior medial aspect was cauterized under direct visualization along the length of the inferior turbinate. At this point, we then turned our attention to the contralateral side and proceeded with endoscopic sinus surgery. At the completion of the case, Rice keel splints were placed in the ethmoid cavities after the ethmoidectomy. There were no complications. The patient tolerated the procedure well and was discharged to the recovery room in stable condition prior to return to the preoperative day stay with ultimate discharge home. Prescriptions for pain medication and antibiotics were provided. The patient received intramuscular Depo-Medrol during the case. Job ID: [id number]
== END 2018-10-28 19:02 | disposition home or self-care (01) ==
LOC: SDC 11:49
PROVIDERS: ATTEND Specialist
PROC: 09SL8ZZ Reposition Nasal Turbinate, Via Natural or Artificial Opening Endoscopic (ICD-10-PCS; principal; 2018-10-28)
PROC: 09TV8ZZ Resection of Left Ethmoid Sinus, Via Natural or Artificial Opening Endoscopic (ICD-10-PCS; 2018-10-28)
PROC: 09TU8ZZ Resection of Right Ethmoid Sinus, Via Natural or Artificial Opening Endoscopic (ICD-10-PCS; 2018-10-28)
PROC: 09BR8ZZ Excision of Left Maxillary Sinus, Via Natural or Artificial Opening Endoscopic (ICD-10-PCS; 2018-10-28)
PROC: 09BQ8ZZ Excision of Right Maxillary Sinus, Via Natural or Artificial Opening Endoscopic (ICD-10-PCS; 2018-10-28)
PROC: 099T8ZZ Drainage of Left Frontal Sinus, Via Natural or Artificial Opening Endoscopic (ICD-10-PCS; 2018-10-28)
PROC: 099W8ZZ Drainage of Right Sphenoid Sinus, Via Natural or Artificial Opening Endoscopic (ICD-10-PCS; 2018-10-28)
PROC: 099X8ZZ Drainage of Left Sphenoid Sinus, Via Natural or Artificial Opening Endoscopic (ICD-10-PCS; 2018-10-28)
PROC: 099S8ZZ Drainage of Right Frontal Sinus, Via Natural or Artificial Opening Endoscopic (ICD-10-PCS; 2018-10-28)
DX: J32.4 Chronic pansinusitis (principal); J34.3 Hypertrophy of nasal turbinates; J34.89 Other specified disorders of nose and nasal sinuses; D68.0 Von Willebrand disease; J45.909 Unspecified asthma, uncomplicated; F32.9 Major depressive disorder, single episode, unspecified; D57.3 Sickle-cell trait; K59.00 Constipation, unspecified; H90.5 Unspecified sensorineural hearing loss; Z79.51 Long term (current) use of inhaled steroids; Z79.899 Other long term (current) drug therapy; Z88.5 Allergy status to narcotic agent; Z88.8 Allergy status to other drugs, medicaments and biological substances; Z88.2 Allergy status to sulfonamides; Z91.041 Radiographic dye allergy status
CPT/HCPCS: 36415; 84703; 85014; J1100; J2001; J2405; J2704; J3010

== ENCOUNTER 2018-11-03 12:43 | Emergency (ER) | payer MEDICARE, MEDICAID ==
[2018-11-03] MEDS ORDERED: Acetaminophen 500 MG TAB ONE (14:22)
[2018-11-03 14:45] LABS: #Basophils 0.1 thou/uL (0.0-0.2); #Eosinphils 0.1 thou/uL (0.0-0.7); #Lymphocytes 4.4 thou/uL (1.20-3.40); #Monocytes 0.7 thou/uL (0.11-0.59); #Neutrophils 5.7 thou/uL (1.40-6.50); %Basophils 1.1 % (0.0-1.0); %Eosinophils 1.1 % (0.0-10.0); %Lymphocytes 40.1 % (21.0-51.0); %Neutrophils 51.9 % (42.0-75.0); Hemoglobin 12.3 g/dL (12.0-16.0); Mean Corpuscular HGB CONC 32.6 g/dL (32.0-36.0); Mean Corpuscular Hemoglobin 26.3 pg (27.0-31.0); Mean Corpuscular Volume 80.6 fL (78.0-98.0); Mean Platelet Volume 7.5 fL (7.4-10.4); Platelet Count 361 thou/uL (130-400); RBC Distribution Width 15.3 % (11.5-14.5); Red Blood Cell (RBC) Count 4.68 mill/uL (4.20-5.40)
[2018-11-03 15:30] LABS: Bilirubin Negative (Negative); Blood, Urine Negative (Negative); Clarity CLEAR (Clear); Glucose, Urine (Dipstick) Negative (Negative); Leukocyte Negative (Negative); Nitrite Negative (Negative); Protein, Urine (Dipstick) Negative (Neg-Trace); Urobilinogen 0.2 mg/dL (0.2-1.0)
[2018-11-03 15:38] LABS: Pregnancy Test - Urine (BHCG) Negative (Negative); Pregu Control Background? CLEAR/WHITE (CLR/WHITE); Pregu Control Bar Appear? YES (CONTROL BAR)
[2018-11-03 16:07] LABS: Albumin 3.6 g/dL (3.5-5.0)
[2018-11-03 16:08] LABS: Chloride 104 mmol/L (98-107); Potassium 3.9 mmol/L (3.5-5.1); Sodium 138 mmol/L (136-145)
[2018-11-03 16:09] LABS: Calcium 8.8 mg/dL (7.8-10.44); Globulin 2.9 g/dL (2.4-3.5); Glucose 74 mg/dL (70-105); Protein, Total 6.5 g/dL (6.0-8.3)
[2018-11-03 16:11] LABS: Anion Gap 14 mmol/L (10-20); Bilirubin, Total 0.2 mg/dL (0.2-1.2); Carbon Dioxide 24 mmol/L (22-29)
[2018-11-03 16:12] LABS: Alkaline Phosphatase 91 U/L (40-150); Calc. Creatinine Clearance 0 mL/min (70-130); Estimated GFR-MDRD 81
[2018-11-03 16:13] LABS: BUN (Urea Nitrogen) 16 mg/dL (7.0-18.7)
[2018-11-03 16:14] LABS: AST (SGOT) 21 U/L (5-34)
[2018-11-03 16:15] LABS: ALT (SGPT) 20 U/L (8-55)
== END 2018-11-03 16:56 | disposition home or self-care (01) ==
LOC: ERS 12:43
DX: R53.1 Weakness (principal); D50.0 Iron deficiency anemia secondary to blood loss (chronic); I10 Essential (primary) hypertension; E11.9 Type 2 diabetes mellitus without complications; Z79.899 Other long term (current) drug therapy; Z86.711 Personal history of pulmonary embolism
CPT/HCPCS: 36415; 80053; 81003; 81025; 85025; 87804; 93005; 96360; 96361

== ENCOUNTER 2019-01-27 12:35 | Day surgery (SDC) | payer MEDICAID, MEDICARE ==
[2019-01-26 14:59] VITALS: BMI 35.2
[2019-01-27] MEDS ORDERED: Ondansetron PF 4 MG/2 ML Vial ONE (14:00)
[2019-01-27] MEDS ORDERED: Dexamethasone 20 MG/5 ML VIAL ONE (14:00)
[2019-01-27] MEDS ORDERED: Lidocaine 1% PF 5 ML VIAL ONE (14:00)
[2019-01-27] MEDS ORDERED: PROPOFOL 200 MG/20 ML VIAL ONE (14:00)
[2019-01-27] MEDS ORDERED: Midazolam HCl 2 mg/2 ml Vial ONE (14:14)
[2019-01-27] MEDS ORDERED: Ferric Subsulfate (ASTRINGYN) 8 ML VIAL ONE (15:45)
[2019-01-27] MEDS ORDERED: Labetalol HCl 100 MG/20 ML VIAL ONE (15:51)
[2019-01-27] MEDS ORDERED: Fentanyl 100 MCG/2 ML VIAL ONE ×3 (16:11→16:35)
--- NOTE | 2019-01-28 13:55 | OP ---
DATE OF PROCEDURE: 01/27/2019 PREOPERATIVE DIAGNOSES: Chronic tonsillitis and recurrent peritonsillar abscess. POSTOPERATIVE DIAGNOSES: Chronic tonsillitis and recurrent peritonsillar abscess. PROCEDURE PERFORMED: Tonsillectomy over 12 years of age. PROCEDURE IN DETAIL: After consent was obtained, the patient was identified, brought to the operating room, and placed on the operating table in the supine position. General endotracheal anesthesia and intravenous access was obtained and we proceeded with positioning the patient for oropharyngeal surgery. Oropharyngeal exposure was obtained with a Ovidio-Trung mouth gag after a head drape was placed and secured with a towel clip. The Ovidio-Trung mouth gag was then suspended from the Gee tray and palatal elevation was achieved with a red rubber catheter. The right tonsil was addressed first. We used a curved Allis to grasp the tonsil and retract it medially as an anterior pillar incision was made with a #12 blade. The retrotonsillar fascial plane was then established and blunt dissection was performed with the suction cautery. Blood vessels were anticipated, identified, and cauterized as they were encountered. Ultimately, dissection was carried to the posterior tonsillar pillar mucosa which was incised hemostatically, as well as the base of tongue connection. The tonsil was then passed off as a specimen and bleeding points within the tonsillar bed were cauterized under direct visualization. We subsequently turned our attention to the contralateral side, where using a similar technique, a near identical procedure was performed. Again, the tonsil was grasped and retracted medially with a curved Allis as an anterior pillar incision was made with a #12 blade. The retrotonsillar fascial plane was established and while the anterior pillar was retracted medially, the hemostatic blunt dissection of the tonsil with a suction cautery was performed with blood vessels anticipated, identified, and cauterized as they were encountered. Again, dissection continued to the base of tongue and posterior tonsillar pillar mucosa which was incised in a hemostatic fashion. The tonsillar beds were then carefully inspected and bleeding points were identified and cauterized with a suction cautery. After this portion of the procedure, hemostasis was completely obtained. The patient's oral cavity was copiously irrigated with iced saline and subsequently suctioned. We then used the red rubber catheter to suction the gastric contents and the patient was subsequently aroused, awakened, and extubated without difficulty and transported to the recovery room in stable condition. There were no complications. Job ID: [id number]
== END 2019-01-27 18:52 | disposition home or self-care (01) ==
LOC: SDC 12:35
PROVIDERS: ATTEND Specialist
PROC: 0CTPXZZ Resection of Tonsils, External Approach (ICD-10-PCS; principal; 2019-01-27)
DX: J35.01 Chronic tonsillitis (principal); J02.9 Acute pharyngitis, unspecified; D68.0 Von Willebrand disease; J45.909 Unspecified asthma, uncomplicated; D57.3 Sickle-cell trait; H90.5 Unspecified sensorineural hearing loss; K21.9 Gastro-esophageal reflux disease without esophagitis; Z79.899 Other long term (current) drug therapy; Z88.2 Allergy status to sulfonamides; Z88.5 Allergy status to narcotic agent; Z88.8 Allergy status to other drugs, medicaments and biological substances; Z91.041 Radiographic dye allergy status
CPT/HCPCS: 36415; 85014; 88304; J1100; J2001; J2250; J2405; J2704; J3010

== ENCOUNTER 2019-01-30 05:16 | Emergency (ER) | payer MEDICARE ==
[2019-01-30] MEDS ORDERED: Fentanyl 100 MCG/2 ML VIAL ONE (05:58)
[2019-01-30] MEDS ORDERED: Dexamethasone 10 MG/ML VIAL ONE (05:59)
[2019-01-30] MEDS ORDERED: SUMAtriptan Succinate 6 MG/0.5 ML VIAL ONE (05:59)
[2019-01-30] MEDS ORDERED: diphenhydrAMINE 50 MG/ML VIAL ONE (05:59)
[2019-01-30] MEDS ORDERED: Ondansetron PF 4 MG/2 ML Vial ONE (06:23)
[2019-01-30] MEDS ORDERED: Acetaminophen 1,000 MG in Premix Bag 1 BAG IVPB SCH (06:30)
== END 2019-01-30 07:10 | disposition home or self-care (01) ==
LOC: ERS 05:16
DX: G89.18 Other acute postprocedural pain (principal); R07.0 Pain in throat; E11.9 Type 2 diabetes mellitus without complications; D50.9 Iron deficiency anemia, unspecified; I10 Essential (primary) hypertension; G47.00 Insomnia, unspecified; F41.9 Anxiety disorder, unspecified; F32.9 Major depressive disorder, single episode, unspecified
CPT/HCPCS: 96361; 96374; 96375; J0131; J1100; J1200; J2405; J3010; J3030

== ENCOUNTER 2019-02-06 08:16 | Emergency (ER) | payer MEDICARE | END 2019-02-06 08:45 | disposition home or self-care (01) | LOC: ERS 08:16 | DX: G89.18 Other acute postprocedural pain (principal); E11.9 Type 2 diabetes mellitus without complications; D57.3 Sickle-cell trait; Z87.01 Personal history of pneumonia (recurrent); D50.9 Iron deficiency anemia, unspecified; I10 Essential (primary) hypertension; G47.00 Insomnia, unspecified; F41.9 Anxiety disorder, unspecified; F32.9 Major depressive disorder, single episode, unspecified | CPT/HCPCS: 99283 ==

== ENCOUNTER 2019-09-07 11:05 | Outpatient (CLI) | payer MEDICARE ==
--- NOTE | 2019-09-07 13:37 | MMO ---
Bilateral MAMMO Bilat Screen [facility]. CLINICAL HISTORY: Patient is 44 years old and is seen for screening. The patient has the following family history of breast cancer: sister, at age 30, malignant (generic). The patient has a history of cervical cancer 2008. VIEWS: The views performed were: bilateral craniocaudal with tomosynthesis and bilateral mediolateral oblique with tomosynthesis. FILMS COMPARED: The present examination has been compared to prior imaging studies performed at [facility] on 08/11/2018, and at [facility] on 07/24/2016 and 08/04/2017. This study has been interpreted with the assistance of computer-aided detection. MAMMOGRAM FINDINGS: There are scattered fibroglandular densities. There are benign appearing calcifications seen in the right breast. There are no suspicious masses, suspicious calcifications, or new areas of architectural distortion. IMPRESSION: THERE IS NO MAMMOGRAPHIC EVIDENCE OF MALIGNANCY. A ROUTINE FOLLOW-UP MAMMOGRAM IN 1 YEAR IS RECOMMENDED. THE RESULTS OF THIS EXAM WERE SENT TO THE PATIENT. ACR BI-RADS Category 2 - Benign finding MAMMOGRAPHY NOTE: 1. A negative mammogram report should not delay a biopsy if a dominant of clinically suspicious mass is present. 2. Approximately 10% to 15% of breast cancers are not detected by mammography. 3. Adenosis and dense breasts may obscure an underlying neoplasm. Reported by: MEENA ROSENBAUM MD Electonically Signed: [id number]
== END 2019-09-07 11:06 | disposition home or self-care (01) ==
LOC: BICMAMMO 11:05
PROVIDERS: ATTEND Family Medicine
DX: Z12.31 Encounter for screening mammogram for malignant neoplasm of breast (principal); Z80.3 Family history of malignant neoplasm of breast; Z85.41 Personal history of malignant neoplasm of cervix uteri
CPT/HCPCS: 77063; 77067

== ENCOUNTER 2019-10-02 20:47 | Emergency (ER) | payer MEDICARE ==
[2019-10-02] MEDS ORDERED: Lidocaine Viscous Sol 2% 15 ml UD Cup ONE (22:45)
[2019-10-02] MEDS ORDERED: Mag-Al 1200 mg/1200 mg/30 ML UDCUP ONE (22:45)
[2019-10-02 23:05] LABS: #Basophils 0.1 thou/uL (0.0-0.2); #Eosinphils 0.2 thou/uL (0.0-0.7); #Lymphocytes 4.2 thou/uL (1.20-3.40); #Monocytes 0.6 thou/uL (0.11-0.59); #Neutrophils 3.8 thou/uL (1.40-6.50); %Basophils 1.6 % (0.0-1.0); %Eosinophils 2.1 % (0.0-10.0); %Neutrophils 42.4 % (42.0-75.0); Hemoglobin 12.4 g/dL (12.0-16.0); Mean Corpuscular HGB CONC 33.6 g/dL (32.0-36.0); Mean Corpuscular Volume 80.3 fL (78.0-98.0); Mean Platelet Volume 7.7 fL (7.4-10.4); Platelet Count 296 thou/uL (130-400); RBC Distribution Width 13.6 % (11.5-14.5); Red Blood Cell (RBC) Count 4.61 mill/uL (4.20-5.40); White Blood Cell (WBC) Count 8.9 thou/uL (4.8-10.8)
--- NOTE | 2019-10-02 23:14 | RAD ---
XR Chest 1 View Portable HISTORY: Vomiting blood. COMPARISON: 12/15/2017 exam. FINDINGS: Heart size and mediastinum are within normal limits. The lungs are clear of infiltrates. No significant bony findings. IMPRESSION: No active intrathoracic disease.
[2019-10-02 23:24] LABS: ALT (SGPT) 15 U/L (8-55); AST (SGOT) 18 U/L (5-34); Albumin 4.1 g/dL (3.5-5.0); Alkaline Phosphatase 98 U/L (40-110); Anion Gap 14 mmol/L (10-20); BUN (Urea Nitrogen) 17 mg/dL (7.0-18.7); Bilirubin, Total Less than 0.2 mg/dL (0.2-1.2); Calc. Creatinine Clearance 0 mL/min (70-130); Carbon Dioxide 26 mmol/L (22-29); Chloride 105 mmol/L (98-107); Estimated GFR-MDRD 77; Globulin 3.3 g/dL (2.4-3.5); Glucose 86 mg/dL (70-105); Lipase 40 U/L (8-78); Potassium 3.7 mmol/L (3.5-5.1); Protein, Total 7.4 g/dL (6.0-8.3); Sodium 141 mmol/L (136-145)
[2019-10-02 23:30] LABS: BHCG - Serum Negative (NEGATIVE); Pregs Control Background? CLEAR/WHITE (CLR/WHITE); Pregs Control Bar Appear? YES (CONTROL BAR)
[2019-10-02 23:36] LABS: Bacteria/HPF None Seen HPF (None Seen); Bilirubin Negative (Negative); Blood, Urine Negative (Negative); Clarity Clear (Clear); Glucose, Urine (Dipstick) Normal (Negative); Leukocyte 25 Leu/uL (Negative); Nitrite Negative (Negative); Protein, Urine (Dipstick) Negative (Neg-Trace); RBC/HPF 0-3 HPF (0-3); Urobilinogen Normal mg/dL (Less than 2)
[2019-10-02] MEDS ORDERED: Acetaminophen 500 MG TAB ONE (23:59)
== END 2019-10-03 00:16 | disposition home or self-care (01) ==
LOC: ERS 20:47
DX: K92.0 Hematemesis (principal); E11.9 Type 2 diabetes mellitus without complications; D50.9 Iron deficiency anemia, unspecified; I10 Essential (primary) hypertension; G47.00 Insomnia, unspecified; F41.9 Anxiety disorder, unspecified; F32.9 Major depressive disorder, single episode, unspecified; Z79.899 Other long term (current) drug therapy
CPT/HCPCS: 36415; 71045; 80053; 81003; 81015; 83690; 84703; 85025; 93005

== ENCOUNTER 2019-10-03 11:32 | Emergency (ER) | payer MEDICARE ==
[2019-10-03 12:56] LABS: #Basophils 0.1 thou/uL (0.0-0.2); #Eosinphils 0.1 thou/uL (0.0-0.7); #Lymphocytes 3.1 thou/uL (1.20-3.40); #Monocytes 0.4 thou/uL (0.11-0.59); #Neutrophils 2.5 thou/uL (1.40-6.50); %Basophils 1.1 % (0.0-1.0); %Lymphocytes 49.8 % (21.0-51.0); %Neutrophils 41.2 % (42.0-75.0); Hemoglobin 11.9 g/dL (12.0-16.0); Mean Corpuscular HGB CONC 32.9 g/dL (32.0-36.0); Mean Corpuscular Hemoglobin 26.5 pg (27.0-31.0); Mean Corpuscular Volume 80.4 fL (78.0-98.0); Mean Platelet Volume 7.6 fL (7.4-10.4); Platelet Count 286 thou/uL (130-400); RBC Distribution Width 13.6 % (11.5-14.5); Red Blood Cell (RBC) Count 4.51 mill/uL (4.20-5.40); White Blood Cell (WBC) Count 6.1 thou/uL (4.8-10.8)
[2019-10-03] MEDS ORDERED: Sucralfate 1 GM/10 ML UDCUP ONE ×2 (13:02→13:04)
[2019-10-03] MEDS ORDERED: Ondansetron PF 4 MG/2 ML Vial ONE ×2 (13:02→13:04)
[2019-10-03 13:19] LABS: ALT (SGPT) 16 U/L (8-55); AST (SGOT) 18 U/L (5-34); Albumin 4.1 g/dL (3.5-5.0); Alkaline Phosphatase 100 U/L (40-110); Anion Gap 13 mmol/L (10-20); BUN (Urea Nitrogen) 13 mg/dL (7.0-18.7); Bilirubin, Total 0.4 mg/dL (0.2-1.2); Calc. Creatinine Clearance 0 mL/min (70-130); Calcium 9.3 mg/dL (7.8-10.44); Carbon Dioxide 26 mmol/L (22-29); Chloride 104 mmol/L (98-107); Estimated GFR-MDRD 84; Globulin 3.1 g/dL (2.4-3.5); Glucose 92 mg/dL (70-105); Lipase 18 U/L (8-78); Potassium 3.7 mmol/L (3.5-5.1); Protein, Total 7.2 g/dL (6.0-8.3); Sodium 139 mmol/L (136-145)
[2019-10-03 13:39] LABS: BHCG - Serum Negative (NEGATIVE); Pregs Control Background? CLEAR/WHITE (CLR/WHITE); Pregs Control Bar Appear? YES (CONTROL BAR)
[2019-10-03 14:31] LABS: Bacteria/HPF None Seen HPF (None Seen); Bilirubin Negative (Negative); Blood, Urine Negative (Negative); Clarity Clear (Clear); Glucose, Urine (Dipstick) Normal (Negative); Leukocyte 25 Leu/uL (Negative); Nitrite Negative (Negative); Protein, Urine (Dipstick) Negative (Neg-Trace); RBC/HPF 0-3 HPF (0-3); Urobilinogen Normal mg/dL (Less than 2); WBC/HPF 0-3 HPF (0-3)
--- NOTE | 2019-10-03 15:08 | CT ---
CT BRAIN WITHOUT CONTRAST: Date: 10/03/2019 HISTORY: Headache and dizziness. COMPARISON: 07/01/11. FINDINGS: No evidence of acute infarct, hemorrhage, midline shift, or abnormal extra-axial fluid collections ar e seen. The ventricular size is normal and the basilar cisterns are patent. The bony calvarium is int act. The visualized paranasal sinuses and mastoid air cells are well aerated. IMPRESSION: No CT evidence of acute intracranial process. POS: [facility]
--- NOTE | 2019-10-03 15:30 | CT ---
CT abdomen and pelvis noncontrast HISTORY: Flank pain. Hematemesis. COMPARISON: 05/08/2018. FINDINGS: Each renal collecting system, ureter, and urinary bladder are decompressed without stone ev ident. Lack of contrast limits evaluation for other abnormalities. Oral contrast was administered. No eviden ce of bowel obstruction or inflammation. No filling defects are evident within the stomach. Gallbladder surgically absent. Postoperative changes of the cecum. Appendix not visualized and presum ed surgically absent. Nonspecific lymph nodes throughout the retroperitoneum. Mild degenerative changes lumbar spine. IMPRESSION: No abnormalities are demonstrated.
== END 2019-10-03 16:40 | disposition home or self-care (01) ==
LOC: ERS 11:32
DX: R10.13 Epigastric pain (principal); R10.10 Upper abdominal pain, unspecified; E11.9 Type 2 diabetes mellitus without complications; I10 Essential (primary) hypertension; D57.00 Hb-SS disease with crisis, unspecified; G47.00 Insomnia, unspecified; F41.9 Anxiety disorder, unspecified; F32.9 Major depressive disorder, single episode, unspecified; Z87.01 Personal history of pneumonia (recurrent); Z79.899 Other long term (current) drug therapy
CPT/HCPCS: 70450; 74176; 80053; 81003; 83690; 84703; 85025; 96361; 96374; J2405

== ENCOUNTER 2021-04-24 09:02 | Emergency (ER) | payer MEDICARE, OTHER, SELFPAY ==
[2021-04-24 10:40] LABS: #Basophils 0.1 thou/uL (0.0-0.2); #Eosinphils 0.1 thou/uL (0.0-0.7); #Lymphocytes 3.3 thou/uL (1.20-3.40); #Monocytes 0.4 thou/uL (0.11-0.59); #Neutrophils 3.5 thou/uL (1.40-6.50); %Basophils 1.1 % (0.0-1.0); %Eosinophils 1.6 % (0.0-10.0); %Lymphocytes 44.2 % (21.0-51.0); %Monocytes 5.7 % (0.0-10.0); %Neutrophils 47.4 % (42.0-75.0); Hemoglobin 11.4 g/dL (12.0-16.0); Mean Corpuscular HGB CONC 32.3 g/dL (32.0-36.0); Mean Corpuscular Hemoglobin 26.4 pg (27.0-31.0); Mean Corpuscular Volume 81.9 fL (78.0-98.0); Platelet Count 318 thou/uL (130-400); RBC Distribution Width 13.9 % (11.5-14.5); White Blood Cell (WBC) Count 7.5 thou/uL (4.8-10.8)
[2021-04-24 10:59] LABS: ALT (SGPT) 11 U/L (8-55); AST (SGOT) 24 U/L (5-34); Albumin 3.8 g/dL (3.5-5.0); Alkaline Phosphatase 87 U/L (40-110); Anion Gap 12 mmol/L (10-20); BUN (Urea Nitrogen) 18 mg/dL (7.0-18.7); Bilirubin, Total 0.3 mg/dL (0.2-1.2); Calc. Creatinine Clearance 0 mL/min (70-130); Calcium 9.1 mg/dL (7.8-10.44); Carbon Dioxide 25 mmol/L (22-29); Chloride 107 mmol/L (98-107); Globulin 3.4 g/dL (2.4-3.5); Glucose 97 mg/dL (70-105); Potassium 4.4 mmol/L (3.5-5.1); Protein, Total 7.2 g/dL (6.0-8.3); Sodium 140 mmol/L (136-145)
== END 2021-04-24 11:32 | disposition home or self-care (01) ==
LOC: ERS 09:02
DX: K62.5 Hemorrhage of anus and rectum (principal)
CPT/HCPCS: 80053; 85025; 99283

== ENCOUNTER 2021-10-02 08:46 | Outpatient (CLI) | payer OTHER | END 2021-10-02 08:47 | disposition home or self-care (01) | LOC: MRI 08:46 | PROVIDERS: ATTEND Orthopaedic Surgery | DX: M25.561 Pain in right knee (principal) ==